=== PATIENT | female | born 1980 | race Caucasian/White ===

== ENCOUNTER 2017-12-25 16:19 | Emergency (ER) | payer OTHER, MEDICAID, SELFPAY ==
--- NOTE | 2017-12-25 | DI.US.S_ITS ---
PROCEDURE: US OB <= 14 WEEKS FETUS INDICATIONS: BLEEDING OUTSIDE/PRIOR DATING DATA: Last menstrual period (LMP): 10/23/17. LMP-based estimated date of delivery ([place]): 07/30/18. First dating scan (date and location): 12/25/17. Estimated date of delivery ([place]) from first dating scan: 08/03/18. TECHNIQUE: Real-time scanning was performed of the fetus and maternal pelvic organs, with image documentation. Endovaginal scanning was also performed to better visualize the fetus and maternal ovaries. COMPARISON: None. FINDINGS: Embryo: Twin intrauterine gestation is present however heart rate detected for only one fetus (180 beats per minute). Hart-rump length measures 1.1 cm. This corresponds to 8 weeks 3 days. Measurement variability in dating: +/- 4 weeks by LMP, +/- 7 days by mean sac diameter (use before 6 weeks gestation if crown-rump length not able to be measured), +/- 5 days by crown-rump length (up to 8 weeks 6 days gestation), +/- 7 days by crown-rump length (up to 13 weeks 6 days gestation). Maternal organs: Ovaries unremarkable except for left-sided presumed corpus luteum.. Limited images through the kidneys demonstrate no hydronephrosis. IMPRESSION: Twin intrauterine gestation, one of which demonstrates demise. The viable fetus demonstrates gestational age of 8 weeks and 3 days by today's ultrasound measurements, concordant with LMP. Dictated by: Gonsalo Ordoñez M.D. on 12/25/2017 at 18:27 Approved by: Gonsalo Ordoñez M.D. on 12/25/2017 at 18:31
[2017-12-25 16:30] VITALS: BP 110/74; PULSE 78; RESP 12; TEMP 36.9; O2SAT 99
--- NOTE | 2017-12-25 16:42 | ED_ITS ---
HPI - <Carmenza George PA-C - Last Filed: 12/25/17 21:57> General Chief complaint: OB/Uterine Contractions Stated complaint: 9WKS AND EXPERIENCING BLEEDING Time Seen by Provider: 12/25/17 16:22 Source: patient and old records reviewed Mode of arrival: ambulatory Limitations: no limitations History of Present Illness HPI Narrative: This 37-year-old female is 9 weeks , was sent from [facility] due to possible miscarriage. Ultrasound was not available there today nor was lab available, so she came here. She states that yesterday, she felt somewhat weak, tired and a bit lightheaded all day. She vomited 4 times during the day (typically she has had 1 episode of vomiting daily). She states that she went to bed and slept most of the day and felt better this morning however she woke up and noted vaginal bleeding which appeared heavy, with clotting. She states the bleeding stopped about the time she got up. She has not bled through a panty liner. She states she might notice a little spotting when she urinates but denies any hematuria. She denies any frequency, urgency or other new urinary symptoms. She denies any vaginal discharge. She has not had fever, chills, sweats. She had crampy abdominal pain yesterday but denies any pain at all now has actually feeling substantially improved. She is generally healthy. This is her 1st Hx Last Menstrual Period: Nine weeks Patient : Yes Related Data Home Medications Medication Instructions Recorded Confirmed ACETAMINOPHEN 0 mg PO PRN #0 02/03/12 Previous Rx's Medication Instructions Recorded Oxycodone (OXYCODONE IR) 5 mg PO Q4HP #30 02/03/12 Allergies Allergy/AdvReac Type Severity Reaction Status Date / Time CODEINE Allergy Mild NAUSEA AND Uncoded 09/22/17 12:22 VOMITING Review of Systems <Carmenza George PA-C - Last Filed: 12/25/17 21:57> Review of Systems All systems reviewed & are unremarkable except as noted in HPI and below PMFSH - <Carmenza George PA-C - Last Filed: 12/25/17 21:57> Past Medical History Medical history: Reports no medical history Surgical history: Reports other (Right upper extremity fracture fixation) Hx Last Menstrual Period: Nine weeks Patient : Yes Psychiatric history: Reports no psych history Exam <Carmenza George PA-C - Last Filed: 12/25/17 21:57> Narrative Exam Narrative: GENERAL APPEARANCE: Patient sitting comfortably, in no distress. HEENT: PERRL, EOMI, conjunctiva pink NECK: Supple LUNGS: Clear to auscultation bilaterally. HEART: Rate and rhythm regular, normal S1 and S2, no S3 or S4. ABDOMEN: Soft, nontender, nondistended, bowel sounds present x 4 quadrants, no masses palpable, no hepatosplenomegaly. No CVAT EXTREMITIES: No edema, no cyanosis DERMATOLOGIC: No jaundice or exanthem NEUROLOGIC: Alert and oriented with normal speech and coordination : Normal external genitalia. There is some clotted, brown blood in the vaginal vault. There is no active bleeding from the cervix. Os is closed. No cervical lesions or discharge. No uterine or adnexal tenderness. No CMT Initial Vital Signs Initial Vital Signs: Vital Signs Temperature 98.4 F 12/25/17 16:30 Pulse Rate 78 12/25/17 16:30 Respiratory Rate 12 12/25/17 16:30 Blood Pressure 110/74 12/25/17 16:30 Pulse Oximetry 99 12/25/17 16:30 <Everardo Philippe DO - Last Filed: 12/26/17 07:26> Initial Vital Signs Initial Vital Signs: Vital Signs Temperature 98.4 F 12/25/17 16:30 Pulse Rate 78 12/25/17 16:30 Respiratory Rate 12 12/25/17 16:30 Blood Pressure 110/74 12/25/17 16:30 Pulse Oximetry 99 12/25/17 16:30 Course <TRANG Singletary Last Filed: 12/25/17 21:57> Additional Information: I spoke with Dr. Cotto, litigation examiner for [employer] and reviewed ultrasound and lab findings. 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 Patient is feeling well now, hungry, tolerating fluids, has had no recurrent bleeding. He advised that patient can return home on bedrest. She is not established with OB yet. He advised to have her call the office on Wednesday morning so that she can be seen for follow-up. She is agreeable with this plan and discussed return if any acutely worsening symptoms again. She is agreeable Orders Ordered: ED Orders 12/25/17 16:45 ABO RH Type Stat HCG Quantitative Stat Hemoglobin and Hematocrit Stat Vital Signs - 8 hr 12/25/17 16:30 12/25/17 18:19 Temperature 98.4 F 98.0 F Pulse Rate 78 60 Respiratory Rate 12 16 Blood Pressure 110/74 Blood Pressure [Right Arm] 100/54 L Pulse Oximetry 99 100 <Everardo Philippe DO - Last Filed: 12/26/17 07:26> Orders Ordered: ED Orders 12/25/17 16:45 ABO RH Type Stat HCG Quantitative Stat Hemoglobin and Hematocrit Stat Vital Signs - 8 hr 12/25/17 16:30 12/25/17 18:19 Temperature 98.4 F 98.0 F Pulse Rate 78 60 Respiratory Rate 12 16 Blood Pressure 110/74 Blood Pressure [Right Arm] 100/54 L Pulse Oximetry 99 100 MDM - OB/Uterine Contractions <Carmenza George PA-C - Last Filed: 12/25/17 21:57> Lab Data Attestation: I reviewed the patient's lab results. 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 Cotto, from [facility] [employer]. He wants you to be on complete bed rest this weekend. You can be up to the restroom. Please call his office 1st thing Wednesday morning and let the switchboard operator receptionist no that we talked with him from the emergency department today and he wants you to be seen there. It is possible that you may have some additional bleeding, but you should return if you are feeling acutely worse again as we discussed. 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 Prescriptions: No Action ACETAMINOPHEN PO PRN Qty: 0 RF: 0 Oxycodone (OXYCODONE IR) 5 mg PO Q4HP Qty: 30 RF: 0 Referrals: Raji Cotto MD [Physician] - Terrance Calixto MD [Non-Staff] - <Everardo Philippe DO - Last Filed: 12/26/17 07:26> [facility] Attending Angelo Attestation: I was available for consultation during this patient's emergency department encounter
[2017-12-25 17:06] LABS: Hematocrit 42.9 % (36-46); Hemoglobin 14.6 g/dL (12.0-16.0)
[2017-12-25 18:06] LABS: HCG Quantitative /Beta subunit 113230 mIU/mL
[2017-12-25 18:19] VITALS: BP 100/54; PULSE 60; RESP 16; TEMP 36.7; O2SAT 100
== END 2017-12-25 19:38 | disposition home or self-care (01) ==
PROVIDERS: Emergency Provider Internal Medicine
DX: O20.9 Hemorrhage in early pregnancy, unspecified (principal); O31.21X0 Continuing pregnancy after intrauterine death of one fetus or more, first trimester, not applicable or unspecified; Z3A.09 9 weeks gestation of pregnancy
CPT/HCPCS: 36591; 76801; 76817; 81003; 81025; 84702; 85014; 85018; 86900; 86901; 99282; 99284

== ENCOUNTER → 2017-12-27 13:50 | Outpatient (CLI) | payer OTHER, MEDICAID, SELFPAY ==
[2017-12-27 15:04] LABS: Add Manual Diff / Slide Review NO; Basophils Percent Auto 0.7 % (0-2); Eosinophils Percent Auto 0.3 % (2-4); Hematocrit 41.4 % (36-46); Mean Corpuscular HGB Conc 33.9 % (30-36); Mean Corpuscular Hemoglobin 32.1 PG (26-34); Mean Corpuscular Volume 94.8 fL (80-100); Monocytes Percent Auto 4.4 % (3-14); Neutrophils Absolute Auto 11200 /uL (3000-5900); Neutrophils Percent Auto 82.6 % (50-75); Platelet Count 292 X10^3/uL (150-400); Red Blood Cell Count 4.37 X10^6/uL (4.0-5.2); Red Cell Distribution Width 13.6 % (11.6-14.8); White Blood Cell Count 13.6 X10^3/uL (4.5-11.0)
[2017-12-27 16:09] LABS: Hepatitis B Surface Antigen NEGATIVE s/c (NEGATIVE)
[2017-12-27 16:24] LABS: HIV 1 and 2 Antibody NEGATIVE (NEGATIVE); Hep C Virus Ab w/Reflex Quant NEGATIVE s/c (NEGATIVE)
[2017-12-29 14:04] LABS: HSV 2 IGG AB < 0.90 index (< 0.90); HSV1IGG < 0.90 index (< 0.90)
[2017-12-29 14:29] LABS: Varicella IgG Antibody > 4000.00 Index (< 135.00)
[2018-01-01 18:20] LABS: Rapid Plasma Reagin NON-REACTIVE
--- NOTE | 2018-01-24 15:49 | PM.GYNHP.1 ---
History of Present Illness Reason for admission: vaginal bleeding and early complication Narrative: Verna Hernandez is a 37 year old female initially seen for bleeding in . Patient had a my 2nd twin and the 1st twin appeared to be viable. Patient was seen in follow-up and both twins this juncture were nonviable. Patient elected to have a D&C to prevent heavy bleeding and retained products of conception. PFSH Social History Smoking Status: Never smoker Meds Allergies Allergy/AdvReac Type Severity Reaction Status Date / Time No Known Allergies Allergy Verified 01/24/18 15:51 codeine AdvReac Mild Vomiting Verified 01/24/18 15:50 Exam Vital Signs (past 8 hours): HEENT within normal limits Chest clear percussion auscultation Cardiovascular system normal sinus rhythm Objective Labs Result Diagrams: 12/27/17 13:54 Assessment & Plan (1) Missed : Problem details: Missed twin Plan is for dilatation and curettage Current visit: No Status: Acute Plan: Assessment/Plan Narrative: Missed twin Plan is for D&C
== END ==
DX: Z34.91 Encounter for supervision of normal pregnancy, unspecified, first trimester (principal)
CPT/HCPCS: 36415; 80055; 86695; 86696; 86703; 86787; 86803; 86850; 86900; 86901; 87077; 87086

== ENCOUNTER 2018-01-26 12:04 | Day surgery (SDC) | payer OTHER, MEDICAID, SELFPAY ==
[2018-01-26] VITALS (15 sets, daily range): BP systolic 91–115; BP diastolic 56–72; PULSE 46–73; RESP 10–25; TEMP 35.9–37.3; O2SAT 95–100; BMI 22.1
--- NOTE | 2018-01-26 | PATH_ITS ---
[facility] Accession Number: [id number] . 01 Material submitted: . POC . 02 Diagnosis: Products of Conception: Chorionic villi, consistent with products of conception. MRV/01/28/2018 . 02 Electronically signed: . Natalie Rogers MD, Pathologist NPI- [id number] . 01 Gross description: . Received in formalin, labeled products of conception, are multiple fragments of red-brown spongy and pink membranous tissue (13.3 x 8.5 x 3.5 cm in aggregate). No tissue is identified. [employer] tissue is submitted in cassettes A1-A4. ([id number]) /MRV . 02 Pathologist provided ICD-10: O02.1 . 02 CPT . 617195 Performed at: 01 [facility] [address] [id number] MD Davion Sadler MD Phone: [phone] Performed at: 02 [facility] [id number] [place] [id number] MD Troy Stuart MD Phone: [phone]
[2018-01-26] MEDS: LACTATED RINGERS 1,000 ML 42 ML IV (12:20)
[2018-01-26] MEDS: CEFOTETAN 2 GM/50 ML PIGGYBACK IV (12:37)
--- NOTE | 2018-01-26 12:54 | SUR.OPER ---
Lithotomy on padded OR bed, head on pillow, arms secured on padded arm boards at <90 degrees abduction. Legs secured in padded yellow fins stirrups.
--- NOTE | 2018-01-26 13:11 | PM.GYNOP.1 ---
Procedure: Procedures Operation Date: 01/26/18 12:30 Actual Procedures Side Surgeon p Dilation and Curettage-Suction Raji Cotto MD Indications: Missed AB Surgeon: Raji Cotto Anesthesia Type: General Operative Notes Closure Type: not applicable Specimen(s): endometrial curettings Estimated blood loss (mL): 400 Blood products transfused: none Procedure in detail: The patient was placed supine upon the operating table and anesthetized area she was then placed in the dorsal lithotomy position and examined under anesthesia. The patient had a uterus approximately 10 week size. Patient was then draped and prepared in the usual fashion. A posterior retractor was set in place and the anterior lip of the cervix grasped with a toothed tenaculum. The uterine cavity was sounded to 11 cm. The uterine cervix was dilated to a Hegar 12. The cervix calibrated to a Hegar 11. A 12. Suction curette was used and large amounts of products of conception were obtained without difficulty. Ring forcep showed no remaining tissue. Gentle curettage revealed no remaining tissue. At the end of procedure there was no bleeding and the uterus had involuted nicely to approximately eight weeks size. The patient was taken to the recovery room in satisfactory condition. Post-operative Condition: stable Disposition: PACU Plan for aftercare: Home Dr. Pearson two weeks
[2018-01-26] MEDS: OXYCODONE/ACETAMINOPHEN 5/325 TABLET 1 TAB PO (13:20)
[2018-01-26] MEDS: HYDROMORPHONE 2 MG INJ 0.5 MG IV ×4 (13:40→13:55)
[2018-01-26] MEDS: ONDANSETRON 4 MG/2 ML INJ IV ×2 (14:33→15:33)
[2018-01-26] MEDS: LACTATED RINGERS 1,000 ML 100 ML IV (15:00)
[2018-01-26] MEDS: METOCLOPRAMIDE 10 MG/2 ML INJ 5 MG IV (15:00)
--- NOTE | 2018-01-26 15:36 | SUR.PHASEII ---
pt has had ongoing nausea nd vomitting verbal orders recieved from dr arauz due to orders in [facility] showing as discontinued. pt is much better at this point but continues to have BP on low end of normal
--- NOTE | 2018-01-26 16:44 | SUR.PHASEII ---
pt done with phase 2 but waited 30 minutes for significant other to arrive
== END 2018-01-26 16:30 | disposition home or self-care (01) ==
PROC: (CPT 58120; principal; 2018-01-26 12:30)
DX: O02.1 Missed abortion (principal); Z3A.00 Weeks of gestation of pregnancy not specified
CPT/HCPCS: 59820; 88305; J1170; J1200; J2210; J2405; J2590; J2704; J2765; J3010

== ENCOUNTER → 2018-02-21 13:23 | Outpatient (CLI) | payer OTHER, MEDICAID, SELFPAY | DX: T81.9XXA Unspecified complication of procedure, initial encounter (principal) | CPT/HCPCS: 87070; 87077; 87147; 87205 ==

== ENCOUNTER → 2018-03-01 12:24 | Outpatient (CLI) | payer OTHER, MEDICAID, SELFPAY | DX: N90.89 Other specified noninflammatory disorders of vulva and perineum (principal) | CPT/HCPCS: 87255 ==

== ENCOUNTER → 2018-04-22 14:19 | Outpatient (CLI) | payer OTHER, MEDICAID, SELFPAY ==
[2018-04-22 15:28] LABS: Prolactin 7.1 ng/mL (3.0-18.6)
[2018-04-22 16:03] LABS: Free T4, Direct Thyroxine 1.19 ng/dL (0.78-2.19)
[2018-04-22 16:16] LABS: Thyroid Stimulating Hormone 1.51 uIU/mL (0.47-4.68)
[2018-04-27 21:42] LABS: Testosterone Free 3.2 pg/mL (0.1-6.4); Testosterone Total 36 ng/dL (2-45)
== END ==
DX: E28.2 Polycystic ovarian syndrome (principal)
CPT/HCPCS: 36415; 82397; 83001; 83002; 84146; 84402; 84403; 84439; 84443

== ENCOUNTER 2018-09-15 14:34 | Emergency (ER) | payer OTHER, MEDICAID, SELFPAY ==
[2018-09-15 14:53] VITALS: BP 109/60; PULSE 70; RESP 15; TEMP 36.6; O2SAT 95; BMI 22.8
[2018-09-15 16:00] LABS: Add Manual Diff / Slide Review NO; Basophils Absolute Auto 100 /uL (0-100); Basophils Percent Auto 0.9 % (0-2); Eosinophils Absolute Auto 300 /uL (0-450); Eosinophils Percent Auto 4.6 % (2-4); Hemoglobin 14.2 g/dL (12.0-16.0); Lymphocytes Absolute Auto 2400 /uL (1100-4500); Lymphocytes Percent Auto 32.2 % (25-40); Mean Corpuscular Hemoglobin 32.1 PG (26-34); Mean Corpuscular Volume 97.3 fL (80-100); Monocytes Absolute Auto 500 /uL (0-900); Monocytes Percent Auto 6.8 % (3-14); Neutrophils Absolute Auto 4100 /uL (1500-7000); Neutrophils Percent Auto 55.5 % (50-75); Platelet Count 280 X10^3/uL (150-400); Red Blood Cell Count 4.42 X10^6/uL (4.0-5.2); Red Cell Distribution Width 13.1 % (11.6-14.8); White Blood Cell Count 7.3 X10^3/uL (4.5-11.0)
--- NOTE | 2018-09-15 16:02 | ED.ABDPAIN ---
HPI - Abdominal Pain <Carmenza George PA-C - Last Filed: 09/15/18 22:01> General Chief Complaint: Abdominal Pain Stated Complaint: right side abominal pain x4-5 days Time Seen by Provider: 09/15/18 15:49 Source: patient Mode of arrival: ambulatory Limitations: no limitations History of Present Illness HPI narrative: This 37-year-old female complains of 4-5 day history of constant right upper quadrant pain just under the ribs. She states that this is an achy, constant pain, worse 1st thing in the morning and with standing. Somewhat better with sitting. She states that there is no relation to food. She generally has not had any nausea or vomiting but did have some nausea today and feels like the pain has gradually gotten a little bit worse, now radiating around to her back slightly. She states that she did have some chips and a little juice right before she got here, otherwise has not eaten today otherwise had been eating normally all along. She states that she had some calf cramps earlier today but not achy all over. She feels a little bit foggy. She denies any fever. She denies any chest pain or dyspnea. She denies any urinary symptoms or hematuria. She denies any bowel habit changes or blood in the stools. She has not had any rash, upper respiratory symptoms or cough recently. She denies possibility of . Related Data Previous Rx's Medication Instructions Recorded valacyclovir 500 mg tablet 500 mg PO .bid #10 tab 03/16/18 letrozole 2.5 mg tablet 2.5 mg PO DAILY #5 tab 05/10/18 medroxyprogesterone 10 mg tablet 10 mg PO DAILY #7 tab 05/10/18 Allergies Allergy/AdvReac Type Severity Reaction Status Date / Time codeine AdvReac Mild Vomiting Verified 09/15/18 14:47 Review of Systems <Carmenza George PA-C - Last Filed: 09/15/18 22:01> Review of Systems ROS Unobtainable: All systems reviewed & are unremarkable except as noted in HPI and below PFSH <Carmenza George PA-C - Last Filed: 09/15/18 22:01> Medical History (Updated 09/15/18 @ 17:58 by Carmenza George PA-C) Healthy female adult (Chronic) Surgical History (Updated 09/15/18 @ 16:32 by Carmenza George PA-C) Right arm fracture (Resolved) S/P D&C (status post dilation and curettage) (Resolved ~01/26/18) Social History household members: none Smoking Status: Never smoker Social History household members: none Smoking Status: Never smoker Exam <Carmenza George PA-C - Last Filed: 09/15/18 22:01> Narrative Exam Narrative: GENERAL APPEARANCE: Patient sitting comfortably, in no distress. HEENT: PERRL, EOMI, no scleral icterus, normal oropharynx NECK: Supple LUNGS: Clear to auscultation bilaterally. HEART: Rate and rhythm regular, normal S1 and S2, no S3 or S4. CHEST: No tenderness along the right inferior ribs ABDOMEN: Soft, nondistended, bowel sounds present x 4 quadrants, no masses palpable, no hepatosplenomegaly. moderate right upper quadrant tenderness to palpation and milder generalized mid to lower quadrant tenderness. no CVAT. No guarding or rebound. Negative Castillo's sign EXTREMITIES: No edema, no calf tenderness DERMATOLOGIC: No jaundice or exanthem NEUROLOGIC: Alert and oriented with normal speech and coordination Initial Vital Signs Initial Vital Signs: Vital Signs Temperature 97.8 F 09/15/18 14:53 Pulse Rate 70 09/15/18 14:53 Respiratory Rate 15 09/15/18 14:53 Blood Pressure 109/60 09/15/18 14:53 Pulse Oximetry 95 09/15/18 14:53 <Radha Streeter MD - Last Filed: 09/25/18 07:40> Initial Vital Signs Initial Vital Signs: Vital Signs Temperature 97.8 F 09/15/18 14:53 Pulse Rate 70 09/15/18 14:53 Respiratory Rate 15 09/15/18 14:53 Blood Pressure 109/60 09/15/18 14:53 Pulse Oximetry 95 09/15/18 14:53 Course <Carmenza George PA-C - Last Filed: 09/15/18 22:01> Additional Information: Patient has appeared comfortable during her stay. She has been drinking juice and states that she is hungry. She has been on her cell phone when I come back into the room each time to talk with her, noted to be quite close to her boyfriend in the lobby (asked by nurses to discontinue behavior). She does not appear to need hospitalization, however did advise at the importance of close follow-up for abdominal pain and need for further testing if this persists. She is agreeable. Discussed her finding of low blood sugar. She had not had any food today until just prior to arrival so may have been related to this but advised her to eat regularly and this may need to be rechecked as well. Orders Ordered: Discontinued Medications Ketorolac Tromethamine (Toradol) 30 mg IV NOW ONE Stop: 09/15/18 16:13 Last Admin: 09/15/18 16:21 Dose: 30 mg Ondansetron HCl (Zofran) 4 mg IV NOW ONE Stop: 09/15/18 16:19 Last Admin: 09/15/18 16:21 Dose: 4 mg Vital Signs - 8 hr 09/15/18 14:53 09/15/18 16:46 09/15/18 17:52 Temperature 97.8 F Pulse Rate 70 69 66 Respiratory Rate 15 17 18 Blood Pressure 109/60 Blood Pressure [Left Arm] 110/67 108/69 Pulse Oximetry 95 100 100 09/15/18 18:09 Temperature 98.2 F Pulse Rate 63 Respiratory Rate 16 Blood Pressure 95/66 Blood Pressure [Left Arm] Pulse Oximetry 100 <Radha Streeter MD - Last Filed: 09/25/18 07:40> Orders Ordered: Discontinued Medications Ketorolac Tromethamine (Toradol) 30 mg IV NOW ONE Stop: 09/15/18 16:13 Last Admin: 09/15/18 16:21 Dose: 30 mg Ondansetron HCl (Zofran) 4 mg IV NOW ONE Stop: 09/15/18 16:19 Last Admin: 09/15/18 16:21 Dose: 4 mg Vital Signs - 8 hr 09/15/18 14:53 09/15/18 16:46 09/15/18 17:52 Temperature 97.8 F Pulse Rate 70 69 66 Respiratory Rate 15 17 18 Blood Pressure 109/60 Blood Pressure [Left Arm] 110/67 108/69 Pulse Oximetry 95 100 100 09/15/18 18:09 Temperature 98.2 F Pulse Rate 63 Respiratory Rate 16 Blood Pressure 95/66 Blood Pressure [Left Arm] Pulse Oximetry 100 MDM - Abdominal Pain <Carmenza George PA-C - Last Filed: 09/15/18 22:01> Lab Data Attestation: I reviewed the patient's lab results. Result diagrams: 09/15/18 15:00 09/15/18 15:00 Lab Results 09/15/18 09/15/18 Range/Units 15:00 15:00 WBC 7.3 (4.5-11.0) X10^3/uL RBC 4.42 (4.0-5.2) X10^6/uL Hgb 14.2 (12.0-16.0) g/dL Hct 43.0 (36-46) % MCV 97.3 (80-100) fL MCH 32.1 (26-34) PG MCHC 33.0 (30-36) % RDW 13.1 (11.6-14.8) % Plt Count 280 (150-400) X10^3/uL Neut % (Auto) 55.5 (50-75) % Lymph % (Auto) 32.2 (25-40) % [place] % (Auto) 6.8 (3-14) % Eos % (Auto) 4.6 H (2-4) % Baso % (Auto) 0.9 (0-2) % Neut # (Auto) 4100 (8220-9391) /uL Lymph # (Auto) 2400 (2725-6157) /uL [place] # (Auto) 500 (0-900) /uL Eos # (Auto) 300 (0-450) /uL Baso # (Auto) 100 (0-100) /uL Sodium 139 (137-145) mmol/L Potassium 4.0 (3.4-5.1) mmol/L Chloride 100 (98-107) mmol/L Carbon Dioxide 31 (22-32) mmol/L BUN 10 (7-17) mg/dL Creatinine 0.60 (0.52-1.04) mg/dL Estimated GFR > 60.0 (>60) mL/min BUN/Creatinine Ratio 16.7 (6-22) Glucose 44 L* (70-100) mg/dL Calcium 9.3 (8.4-10.2) mg/dL Total Bilirubin 0.3 (0.2-1.3) mg/dL AST 30 (14-36) IU/L ALT 27 (9-52) IU/L Alkaline Phosphatase 47 (38-126) U/L Total Protein 7.8 (6.3-8.2) g/dL Albumin 4.7 (3.5-5.0) g/dL Globulin 3.1 (1.7-4.1) g/dL Albumin/Globulin Ratio 1.5 (1.0-2.8) Lipase 166 (23-300) U/L Point of care testing: Point of Care Testing Test Results Negative Glucose POC 106 Urine Dip Bedside Urine Glucose Negative Bedside Urine Bilirubin - Negative Bedside Urine Ketone - Negative Urine Specific [place] 1.025 Bedside Urine Occult Blood - Negative Bedside Urine pH 6.5 Bedside Urine Protein - Negative Bedside Urine Urobilinogen - Negative Bedside Urine Nitrite - Negative Bedside Urine Leukocytes - Negative Esterase Imaging Data US - abdomen: Radiologist's impression: [address] [address] Ultrasound Report Signed Patient: Verna Hernandez#: [id number] : 1980Acct:[id number] Age/Sex: 37 / FDate of Service: 09/15/18 Loc: ED Accession Number: [id number] Procedure: US abdomen complete Ordering Provider: Carmenza George P.A-C PROCEDURE: US ABDOMEN COMPLETE INDICATIONS: RIGHT UPPER QUADRANT AND RIGHT FLANK PAIN TECHNIQUE: Real-time scanning was performed of the abdominal and retroperitoneal organs, with image documentation. COMPARISON: None. FINDINGS: Liver: The liver is normal in size and demonstrates mildly increased echogenicity when compared to the right renal cortex. However, there is a focal area of increased echogenicity identified near the main portal vein within the left hepatic lobe, measuring up to 1.6 cm, which is not well characterized. No additional lesions are evident. Gallbladder: The gallbladder is normal in size without cholelithiasis or gall bladder wall inflammation. Biliary ducts: Intrahepatic bile ducts are non-dilated. Extrahepatic bile duct caliber measures 9 mm. Normal is 6-7 mm or less in diameter, or 10 mm or less post-cholecystectomy. Pancreas: Visualized portions of the pancreas are sonographically normal. Spleen: Spleen is normal in size and homogeneous in echotexture. Kidneys: Kidneys are normal in size and echotexture. However, large portion of the inferior aspect of the right kidney is obscured by bowel gas. Right kidney measures 10.0 cm long; left kidney measures 10.3 cm long. No hydronephrosis or shadowing nephrolithiasis. No solid masses. Aorta: Visualized aorta is normal in caliber at less than 3 cm. Iliacs: Proximal common iliac arteries are normal in caliber at less than 2.5 cm. IVC: Intrahepatic inferior vena cava is patent. Miscellaneous: No free abdominal fluid. IMPRESSION: 1. No cholelithiasis or evidence of acute cholecystitis. 2. Enlarged common bile duct is unusual for the patient's age. Please consider MRCP to exclude the possibility of choledocholithiasis. 3. Possible mild hepatic steatosis. 4. Small echogenic focus within the liver near the main portal vein probably represents a focal area of fatty infiltration. A hemangioma or other etiologies may also have this appearance. 5. No hydronephrosis. Dictated by: Felipe Jerez M.D. on 09/15/2018 at 16:28 Approved by: Felipe Jerez M.D. on 09/15/2018 at 16:32 <Radha Streeter MD - Last Filed: 09/25/18 07:40> Lab Data Lab Results 09/15/18 09/15/18 Range/Units 15:00 15:00 WBC 7.3 (4.5-11.0) X10^3/uL RBC 4.42 (4.0-5.2) X10^6/uL Hgb 14.2 (12.0-16.0) g/dL Hct 43.0 (36-46) % MCV 97.3 (80-100) fL MCH 32.1 (26-34) PG MCHC 33.0 (30-36) % RDW 13.1 (11.6-14.8) % Plt Count 280 (150-400) X10^3/uL Neut % (Auto) 55.5 (50-75) % Lymph % (Auto) 32.2 (25-40) % [place] % (Auto) 6.8 (3-14) % Eos % (Auto) 4.6 H (2-4) % Baso % (Auto) 0.9 (0-2) % Neut # (Auto) 4100 (4490-4652) /uL Lymph # (Auto) 2400 (5246-1342) /uL [place] # (Auto) 500 (0-900) /uL Eos # (Auto) 300 (0-450) /uL Baso # (Auto) 100 (0-100) /uL Sodium 139 (137-145) mmol/L Potassium 4.0 (3.4-5.1) mmol/L Chloride 100 (98-107) mmol/L Carbon Dioxide 31 (22-32) mmol/L BUN 10 (7-17) mg/dL Creatinine 0.60 (0.52-1.04) mg/dL Estimated GFR > 60.0 (>60) mL/min BUN/Creatinine Ratio 16.7 (6-22) Glucose 44 L* (70-100) mg/dL Calcium 9.3 (8.4-10.2) mg/dL Total Bilirubin 0.3 (0.2-1.3) mg/dL AST 30 (14-36) IU/L ALT 27 (9-52) IU/L Alkaline Phosphatase 47 (38-126) U/L Total Protein 7.8 (6.3-8.2) g/dL Albumin 4.7 (3.5-5.0) g/dL Globulin 3.1 (1.7-4.1) g/dL Albumin/Globulin Ratio 1.5 (1.0-2.8) Lipase 166 (23-300) U/L Point of care testing: Point of Care Testing Test Results Negative Glucose POC 106 Urine Dip Bedside Urine Glucose Negative Bedside Urine Bilirubin - Negative Bedside Urine Ketone - Negative Urine Specific [place] 1.025 Bedside Urine Occult Blood - Negative Bedside Urine pH 6.5 Bedside Urine Protein - Negative Bedside Urine Urobilinogen - Negative Bedside Urine Nitrite - Negative Bedside Urine Leukocytes - Negative Esterase Discharge Plan Departure Patient Disposition: Home Clinical Impression: Nausea Abdominal pain Qualifiers: Abdominal location: right upper quadrant Qualified Code(s): R10.11 - Right upper quadrant pain Discharge Date/Time: 09/15/18 18:11 Interventions: ED Discharge Assessment Last Done: 09/15/18 18:09 Instructions: DI for Abdominal Pain-Adult Activity Restrictions/Additional Instructions: Since you are feeling better, it is okay to return home for now. Since you are hungry, you can eat but please stick with more bland foods, and eat something every couple of hours as this tends to help more with nausea. Your blood sugar was low today but this may simply have been related to not having eaten anything today until right before you arrived. It is normal now. There was no acute problem other than that found on your lab testing. You did not have an inflamed appearing gallbladder on your ultrasound, however as we talked about the bile duct in the gallbladder was a little bit enlarged for your age. if you continue to have pain, you may need a more specialized test, called an MRCP, that can be done here on an outpatient basis (your PCP may need to put in a referral and schedule that for you). You also may need to see a specialist if you have persistent symptoms. please call your clinic tomorrow and let them know that you were seen here today for abdominal pain and we wanted to have you follow up tomorrow for recheck. As we discussed, you should return here if you have any acutely worsening symptoms, i.e. severe pain, new vomiting that the nausea medicine is not helping, new fever, etc. For pain, please try taking Aleve (naproxen) 2 tablets every 12 hours in addition to the nausea medicine as needed Prescriptions: No Action valacyclovir [Valtrex] 500 mg tablet 500 mg PO .bid Qty: 10 RF: 2 medroxyprogesterone [Provera] 10 mg tablet 10 mg PO DAILY Qty: 7 RF: 3 letrozole 2.5 mg tablet 2.5 mg PO DAILY Qty: 5 RF: 3 Referrals: [facility] [Provider Group] Raji Cotto MD [Physician] -
[2018-09-15 16:08] LABS: Alanine Aminotransferase 27 IU/L (9-52); Albumin 4.7 g/dL (3.5-5.0); Albumin Globulin Ratio 1.5 (1.0-2.8); Alkaline Phosphatase 47 U/L (38-126); Aspartate Aminotransferase 30 IU/L (14-36); BUN Creatinine Ratio 16.7 (6-22); Bilirubin Total 0.3 mg/dL (0.2-1.3); Blood Urea Nitrogen 10 mg/dL (7-17); Calcium 9.3 mg/dL (8.4-10.2); Carbon Dioxide 31 mmol/L (22-32); Chloride 100 mmol/L (98-107); Estimated Glomerular Filt Rate > 60.0 mL/min (>60); Globulin 3.1 g/dL (1.7-4.1); HEMOLYSIS 38 (0-50); Lipase 166 U/L (23-300); Sodium 139 mmol/L (137-145); Total Protein 7.8 g/dL (6.3-8.2)
[2018-09-15 16:11] LABS: Glucose 44 mg/dL (70-100)
[2018-09-15] MEDS: ONDANSETRON 4 MG/2 ML INJ IV (16:21)
[2018-09-15] MEDS: KETOROLAC 60 MG/2 ML VIAL 30 MG IV (16:21)
--- NOTE | 2018-09-15 16:32 | DI.US.S_ITS ---
PROCEDURE: US ABDOMEN COMPLETE INDICATIONS: RIGHT UPPER QUADRANT AND RIGHT FLANK PAIN TECHNIQUE: Real-time scanning was performed of the abdominal and retroperitoneal organs, with image documentation. COMPARISON: None. FINDINGS: Liver: The liver is normal in size and demonstrates mildly increased echogenicity when compared to the right renal cortex. However, there is a focal area of increased echogenicity identified near the main portal vein within the left hepatic lobe, measuring up to 1.6 cm, which is not well characterized. No additional lesions are evident. Gallbladder: The gallbladder is normal in size without cholelithiasis or gall bladder wall inflammation. Biliary ducts: Intrahepatic bile ducts are non-dilated. Extrahepatic bile duct caliber measures 9 mm. Normal is 6-7 mm or less in diameter, or 10 mm or less post-cholecystectomy. Pancreas: Visualized portions of the pancreas are sonographically normal. Spleen: Spleen is normal in size and homogeneous in echotexture. Kidneys: Kidneys are normal in size and echotexture. However, large portion of the inferior aspect of the right kidney is obscured by bowel gas. Right kidney measures 10.0 cm long; left kidney measures 10.3 cm long. No hydronephrosis or shadowing nephrolithiasis. No solid masses. Aorta: Visualized aorta is normal in caliber at less than 3 cm. Iliacs: Proximal common iliac arteries are normal in caliber at less than 2.5 cm. IVC: Intrahepatic inferior vena cava is patent. Miscellaneous: No free abdominal fluid. IMPRESSION: 1. No cholelithiasis or evidence of acute cholecystitis. 2. Enlarged common bile duct is unusual for the patient's age. Please consider MRCP to exclude the possibility of choledocholithiasis. 3. Possible mild hepatic steatosis. 4. Small echogenic focus within the liver near the main portal vein probably represents a focal area of fatty infiltration. A hemangioma or other etiologies may also have this appearance. 5. No hydronephrosis. Dictated by: Feilpe Jerez M.D. on 09/15/2018 at 16:28 Approved by: Felipe Jerez M.D. on 09/15/2018 at 16:32
[2018-09-15 16:46] VITALS: BP 110/67; PULSE 69; RESP 17; O2SAT 100
[2018-09-15 17:52] VITALS: BP 108/69; PULSE 66; RESP 18; O2SAT 100
[2018-09-15 18:09] VITALS: BP 95/66; PULSE 63; RESP 16; TEMP 36.8; O2SAT 100
== END 2018-09-15 18:11 | disposition home or self-care (01) ==
PROVIDERS: Emergency Provider Internal Medicine
DX: R11.0 Nausea (principal); R10.11 Right upper quadrant pain; M54.9 Dorsalgia, unspecified
CPT/HCPCS: 36591; 76700; 80053; 81003; 81025; 82962; 83690; 85025; 96374; 96375; 99282; 99284; J1885; J2405

== ENCOUNTER → 2018-10-03 15:57 | Outpatient (CLI) | payer OTHER, MEDICAID, SELFPAY ==
--- NOTE | 2018-10-03 15:58 | DI.MRI.S_ITS ---
PROCEDURE: MR ABDOMEN WO CON INDICATIONS: UPPER ABDOMINAL PAIN. TECHNIQUE: Coronal HASTE through the abdomen, axial 2-D FLASH in- and [id number], and breath-hold T2 FSE with fat saturation through the biliary system and pancreas. Oblique coronal and axial thin-slice HASTE, radial thick-slab HASTE centered on the extrahepatic bile ducts. Intravenous secretin: Not requested. COMPARISON: [facility], , US ABDOMEN COMPLETE, 09/15/2018, 16:48. FINDINGS: Image quality: Diagnostic, with note made of motion artifact. Pancreas and biliary system: The intrahepatic biliary ducts do not appear dilated. There is fusiform dilatation of the common bile duct, which measures up to 12 mm. There is also mild prominence seen of the cystic duct itself. No filling defects can be seen to suggest choledocholithiasis. No significant gallbladder abnormality is seen. Pancreas is normal in morphology, without adjacent soft tissue edema. Pancreatic duct is normal in caliber, without developmental anomalies. Other solid organs: Liver is normal in size. Spleen is normal in size. No adrenal nodules. Both kidneys are normal in size, without hydronephrosis. Nodes and vessels: No retroperitoneal or mesenteric adenopathy by size criteria. Aorta and inferior vena cava are normal in size. Bowel and peritoneum: Unenhanced bowel loops are normal in caliber. No free fluid. Lung bases: No basal pleural effusions. Heart size is normal. Bones and soft tissues: No ventral hernias. Bone marrow is of normal overall signal. 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 No filling defects are seen. No findings of choledocholithiasis. Dictated by: Kenneth Marroquin M.D. on 10/04/2018 at 8:10 Approved by: Kenneth Marroquin M.D. on 10/04/2018 at 8:13
== END ==
PROVIDERS: Visit Provider Physician Assistant Medical
DX: R10.10 Upper abdominal pain, unspecified (principal); K83.8 Other specified diseases of biliary tract
CPT/HCPCS: 74181

== ENCOUNTER 2018-12-10 15:48 | Emergency (ER) | payer OTHER, MEDICAID, SELFPAY ==
[2018-12-10 16:00] VITALS: BP 118/74; PULSE 77; RESP 16; TEMP 37.1; O2SAT 99; BMI 24.5
[2018-12-10 16:42] LABS: Bacteria Urine Occasional (0-1); Culture Indicated Urine Cult Not Indicated; RBC Urine 0-1/HPF (0-5/HPF); Squamous Epithelial Cell Urine 5-10 /HPF (0-5/HPF); WBC Urine 0-1/HPF (0-5/HPF)
--- NOTE | 2018-12-10 17:24 | ED.ABDPAIN ---
HPI - Abdominal Pain <AALIYAH Owen - Last Filed: 12/10/18 20:36> General Chief Complaint: Abdominal Pain Stated Complaint: right side abdominal pain Time Seen by Provider: 12/10/18 17:13 Source: patient Mode of arrival: ambulatory Limitations: no limitations History of Present Illness HPI narrative: 38-year-old female with a history of choledochal cyst presents to the emergency department today complaining of right upper abdominal pain that has worsened over the past few days. States that she ran out of pain medicine if few days ago and she was currently taking Percocet. Is waiting for both [facility] or the [facility] to schedule her for a surgical cyst removal. States yesterday the pain has increased significantly, reports that as a pulling 10/10 right upper quadrant pain that radiates to her hips and her back as well as up to both shoulders. States pain is worse with movement and standing and is better with rest, associated nausea. Patient has been taking naproxen but this has not helped. Denies headaches, chest pain, shortness of breath, nausea, or change in her stools. MD complaint: abdominal pain Related Data Previous Rx's Medication Instructions Recorded letrozole 2.5 mg tablet 2.5 mg PO DAILY #5 tab 05/10/18 medroxyprogesterone 10 mg tablet 10 mg PO DAILY #7 tab 05/10/18 valacyclovir 500 mg tablet 500 mg PO .bid #10 tab 10/31/18 oxycodone-acetaminophen [Percocet] 1 tab PO Q4-6H PRN #5 tab 12/10/18 Allergies Allergy/AdvReac Type Severity Reaction Status Date / Time codeine AdvReac Mild Vomiting Verified 12/10/18 16:05 Review of Systems <AALIYAH Owen - Last Filed: 12/10/18 20:36> Review of Systems REVIEW OF SYSTEMS: GENERAL: Denies fever or chills. HENT: No head trauma, hearing loss or sore throat. EYES: No loss of vision, double vision, eye pain, or irritation. CARDIOVASCULAR: No chest pain or syncope. RESPIRATORY: No shortness of breath or cough. GASTROINTESTINAL: Complains of vomiting and abdominal pain, see HPI. GENITOURINARY: No flank pain or dysuria. MUSCULOSKELETAL: No pain, weakness, or deformities. INTEGUMENTARY: No rash, lesions, or pruritus. NEURO: No numbness, tingling, memory loss, or confusion. PSYCH: No behavior or mood changes. PFSH <AALIYAH Owen - Last Filed: 12/10/18 20:36> Medical History Healthy female adult (Chronic) Surgical History Right arm fracture (Resolved) S/P D&C (status post dilation and curettage) (Resolved ~01/26/18) Social History household members: none Smoking Status: Never smoker Social History household members: none Smoking Status: Never smoker Exam <AALIYAH Owen - Last Filed: 12/10/18 20:36> Initial Vital Signs Initial Vital Signs: Vital Signs Temperature 98.7 F 12/10/18 16:00 Pulse Rate 77 12/10/18 16:00 Respiratory Rate 16 12/10/18 16:00 Blood Pressure 118/74 12/10/18 16:00 Pulse Oximetry 99 12/10/18 16:00 PHYSICAL EXAMINATION: GENERAL: Well groomed, alert, and cooperative. Answers questions promptly and appropriately. Vital signs noted. HENT: Normocephalic, atraumatic. Oral mucosa is pink and moist. EYES: EOMIs, conjunctiva pink, sclera white, no periorbital swelling. NECK: Full range of motion. CHEST: Normal to inspection and without deformities. CARDIOVASCULAR: S1 and S2 sounds normal. Regular rate and rhythm, no murmurs, clicks, or bruits. No pedal edema. RESPIRATORY: Normal respiratory rate, trachea midline, airway patent. No stridor, nasal flaring or accessory muscle use. Lungs are clear in all moe without wheeze, rhonchi, or crackles. GASTROINTESTINAL: Bowel sounds normoactive. Slight tenderness to right upper quadrant, no rebound tenderness, no masses palpated. MUSCULOSKELETAL: Normal gait and coordination. Equal tone and mass bilaterally. EXTREMITIES: CMS intact. Moves all extremities. SKIN: Warm, dry, soft, appropriate color for ethnicity. No lesions, rashes, or wounds. NEURO: Alert and Oriented X 3. Good coordination. No ataxia, or sensory deficits, or cognitive issues. PSYCH: Appropriate affect and mood. <Nancy Monk DO - Last Filed: 12/11/18 08:43> Initial Vital Signs Initial Vital Signs: Vital Signs Temperature 98.7 F 12/10/18 16:00 Pulse Rate 77 12/10/18 16:00 Respiratory Rate 16 12/10/18 16:00 Blood Pressure 118/74 12/10/18 16:00 Pulse Oximetry 99 12/10/18 16:00 Course <Collette AALIYAH Bey - Last Filed: 12/10/18 20:36> Orders Ordered: Discontinued Medications Sodium Chloride (Normal Saline 0.9%) 1,000 mls @ 1,000 mls/hr IV BOLUS ONE Stop: 12/10/18 18:29 Last Infusion: 12/10/18 18:39 Dose: 0 mls/hr Admin: 12/10/18 17:41 Dose: 1,000 mls/hr Ondansetron HCl (Zofran) 4 mg IV NOW ONE Stop: 12/10/18 17:31 Last Admin: 12/10/18 17:41 Dose: 4 mg Oxycodone/Acetaminophen (Percocet 5/325) 1 tab PO NOW ONE Stop: 12/10/18 18:07 Last Admin: 12/10/18 18:38 Dose: 1 tab Oxycodone/Acetaminophen (Endocet 5/325 Prepack) 1 bottle MISC SEEINSTR ONE Stop: 12/10/18 20:09 Last Admin: 12/10/18 20:22 Dose: 1 bottle Reevaluation(s) Reevaluation #1: After evaluation patient states she is relieved that her imaging and labs were normal. States she is still having, see orders. Patient able to get dressed and walk around the room. Consultations Consultation #1: Patient staffed with Dr. Monk. Vital Signs - 8 hr 12/10/18 16:00 12/10/18 18:05 12/10/18 19:02 Temperature 98.7 F Pulse Rate 77 60 55 L Respiratory Rate 16 18 Blood Pressure 118/74 Blood Pressure [Left Arm] 101/60 112/66 Pulse Oximetry 99 100 96 <Nancy Monk DO - Last Filed: 12/11/18 08:43> Orders Ordered: Discontinued Medications Sodium Chloride (Normal Saline 0.9%) 1,000 mls @ 1,000 mls/hr IV BOLUS ONE Stop: 12/10/18 18:29 Last Infusion: 12/10/18 18:39 Dose: 0 mls/hr Admin: 12/10/18 17:41 Dose: 1,000 mls/hr Ondansetron HCl (Zofran) 4 mg IV NOW ONE Stop: 12/10/18 17:31 Last Admin: 12/10/18 17:41 Dose: 4 mg Oxycodone/Acetaminophen (Percocet 5/325) 1 tab PO NOW ONE Stop: 12/10/18 18:07 Last Admin: 12/10/18 18:38 Dose: 1 tab Oxycodone/Acetaminophen (Endocet 5/325 Prepack) 1 bottle MISC SEEINSTR ONE Stop: 12/10/18 20:09 Last Admin: 12/10/18 20:22 Dose: 1 bottle Vital Signs - 8 hr 12/10/18 16:00 12/10/18 18:05 12/10/18 19:02 Temperature 98.7 F Pulse Rate 77 60 55 L Respiratory Rate 16 18 Blood Pressure 118/74 Blood Pressure [Left Arm] 101/60 112/66 Pulse Oximetry 99 100 96 MDM - Abdominal Pain <AALIYAH Owen - Last Filed: 12/10/18 20:36> Medical Records Attestation: I reviewed the patient's medical records. Lab Data Attestation: I reviewed the patient's lab results. Result diagrams: 12/10/18 17:25 12/10/18 17:25 Lab Results 12/10/18 12/10/18 12/10/18 Range/Units 16:10 17:25 17:25 WBC 6.9 (4.5-11.0) X10^3/uL RBC 4.42 (4.0-5.2) X10^6/uL Hgb 14.5 (12.0-16.0) g/dL Hct 42.8 (36-46) % MCV 96.7 (80-100) fL MCH 32.7 (26-34) PG MCHC 33.8 (30-36) % RDW 13.1 (11.6-14.8) % Plt Count 322 (150-400) X10^3/uL Neut % (Auto) 63.7 (50-75) % Lymph % (Auto) 28.4 (25-40) % [place] % (Auto) 5.7 (3-14) % Eos % (Auto) 1.2 L (2-4) % Baso % (Auto) 1.0 (0-2) % Neut # (Auto) 4400 (2938-2811) /uL Lymph # (Auto) 2000 (9085-0723) /uL [place] # (Auto) 400 (0-900) /uL Eos # (Auto) 100 (0-450) /uL Baso # (Auto) 100 (0-100) /uL PT 11.2 (10.1-12.7) SECONDS INR 1.0 (0.9-1.3) APTT 31 (26.4-36.2) SECONDS Sodium (137-145) mmol/L Potassium (3.4-5.1) mmol/L Chloride (98-107) mmol/L Carbon Dioxide (22-32) mmol/L BUN (7-17) mg/dL Creatinine (0.52-1.04) mg/dL Estimated GFR (>60) mL/min BUN/Creatinine Ratio (6-22) Glucose (70-100) mg/dL Calcium (8.4-10.2) mg/dL Total Bilirubin (0.2-1.3) mg/dL AST (14-36) IU/L ALT (9-52) IU/L Alkaline Phosphatase (38-126) U/L Total Protein (6.3-8.2) g/dL Albumin (3.5-5.0) g/dL Globulin (1.7-4.1) g/dL Albumin/Globulin Ratio (1.0-2.8) Lipase (23-300) U/L Urine RBC 0-1/hpf (0-5/HPF) Urine WBC 0-1/hpf (0-5/HPF) Ur Squamous Epith Cells 5-10 /hpf H (0-5/HPF) Urine Bacteria Occasional (0-1) (None) Ur Culture Indicated? Cult not indicated 12/10/18 Range/Units 17:25 WBC (4.5-11.0) X10^3/uL RBC (4.0-5.2) X10^6/uL Hgb (12.0-16.0) g/dL Hct (36-46) % MCV (80-100) fL MCH (26-34) PG MCHC (30-36) % RDW (11.6-14.8) % Plt Count (150-400) X10^3/uL Neut % (Auto) (50-75) % Lymph % (Auto) (25-40) % [place] % (Auto) (3-14) % Eos % (Auto) (2-4) % Baso % (Auto) (0-2) % Neut # (Auto) (6571-3833) /uL Lymph # (Auto) (4095-3677) /uL [place] # (Auto) (0-900) /uL Eos # (Auto) (0-450) /uL Baso # (Auto) (0-100) /uL PT (10.1-12.7) SECONDS INR (0.9-1.3) APTT (26.4-36.2) SECONDS Sodium 141 (137-145) mmol/L Potassium 4.2 (3.4-5.1) mmol/L Chloride 104 (98-107) mmol/L Carbon Dioxide 29 (22-32) mmol/L BUN 9 (7-17) mg/dL Creatinine 0.60 (0.52-1.04) mg/dL Estimated GFR > 60.0 (>60) mL/min BUN/Creatinine Ratio 15.0 (6-22) Glucose 78 (70-100) mg/dL Calcium 9.8 (8.4-10.2) mg/dL Total Bilirubin 0.4 (0.2-1.3) mg/dL AST 26 (14-36) IU/L ALT 20 (9-52) IU/L Alkaline Phosphatase 74 (38-126) U/L Total Protein 8.0 (6.3-8.2) g/dL Albumin 4.6 (3.5-5.0) g/dL Globulin 3.4 (1.7-4.1) g/dL Albumin/Globulin Ratio 1.4 (1.0-2.8) Lipase 112 (23-300) U/L Urine RBC (0-5/HPF) Urine WBC (0-5/HPF) Ur Squamous Epith Cells (0-5/HPF) Urine Bacteria (None) Ur Culture Indicated? Point of care testing: Point of Care Testing Test Results Negative Urine Dip Bedside Urine Glucose Negative Bedside Urine Bilirubin - Negative Bedside Urine Ketone - Negative Urine Specific [place] 1.015 Bedside Urine Occult Blood + Bedside Urine pH 6.5 Bedside Urine Protein - Negative Bedside Urine Urobilinogen - Negative Bedside Urine Nitrite - Negative Bedside Urine Leukocytes - Negative Esterase Imaging Data US - abdomen: Radiologist's impression: [address] [address] Ultrasound Report Signed Patient: Verna HernandezMR#: [id number] : 1980Acct:[id number] Age/Sex: 38 / FDate of Service: 12/10/18 Loc: ED Accession Number: [id number] Procedure: US abdomen limited Ordering Provider: Coleltte Bey PROCEDURE: US ABDOMEN LIMITED INDICATIONS: INCREASED RUQ PAIN, HX OF CHOLEDOCHAL CYST TECHNIQUE: Real-time scanning was performed of the abdominal and retroperitoneal organs, with image documentation. COMPARISON: [facility], MR, MR ABDOMEN WO CON, 10/03/2018, 16:32. [facility], US, US ABDOMEN COMPLETE, 09/15/2018, 16:48. FINDINGS: Gallbladder and liver: The gallbladder appears normal, free of calculus or wall thickening. The posterior border of the liver parenchyma near the portal vein and common hepatic duct contains a nonspecific ovoid hyperechoic finding measuring 6 x 10 x 14 mm, likely a small hemangioma by appearance. Biliary ducts: Intrahepatic bile ducts are non-dilated. Extrahepatic bile duct caliber measures 9 mm. This area of mild ectasia of the common duct is consistent with a type I choledochocyst. Normal is 6-7 mm or less in diameter, or 10 mm or less post-cholecystectomy. Pancreas: Visualized portions of the pancreas are sonographically normal. Spleen: Spleen is normal in size and homogeneous in echotexture. Miscellaneous: No free abdominal fluid. IMPRESSION: A mild fusiform ectasia of the mid common bile duct is again seen equivalent to that present considering differences in technique on recent prior MR scanning 10/03/18, consistent with a type I choledochocyst. No source of pain is seen, gallbladder appears normal. Incidental note made of a small ovoid hyperechoic area of the liver parenchyma adjacent to the gallbladder fossa region, consistent with small hemangioma or focal fatty infiltration. Dictated by: Leandro Beltran M.D. on 12/10/2018 at 19:44 Approved by: Leandro Beltran M.D. on 12/10/2018 at 19:50 ECG Data Interpretation: Normal sinus rhythm, rate 61 beats per minute, pr interval 107, QTC 400, no ST elevation or ST depression, no ectopy MDM Narrative Medical decision making narrative: I suspect that patient's pain is caused by her cyst, and is exacerbated by the fact that she ran and pain medication a few days ago. Very little concern for worsening condition due to normal labs and unchanged ultrasound. Little concern for infection, hernia, or other disease process due to normal labs and unchanged imaging. Strict return precautions discussed and follow-up instructions given. <Nancy Monk, - Last Filed: 12/11/18 08:43> Lab Data Lab Results 12/10/18 12/10/18 12/10/18 Range/Units 16:10 17:25 17:25 WBC 6.9 (4.5-11.0) X10^3/uL RBC 4.42 (4.0-5.2) X10^6/uL Hgb 14.5 (12.0-16.0) g/dL Hct 42.8 (36-46) % MCV 96.7 (80-100) fL MCH 32.7 (26-34) PG MCHC 33.8 (30-36) % RDW 13.1 (11.6-14.8) % Plt Count 322 (150-400) X10^3/uL Neut % (Auto) 63.7 (50-75) % Lymph % (Auto) 28.4 (25-40) % [place] % (Auto) 5.7 (3-14) % Eos % (Auto) 1.2 L (2-4) % Baso % (Auto) 1.0 (0-2) % Neut # (Auto) 4400 (3156-4803) /uL Lymph # (Auto) 2000 (2388-0958) /uL [place] # (Auto) 400 (0-900) /uL Eos # (Auto) 100 (0-450) /uL Baso # (Auto) 100 (0-100) /uL PT 11.2 (10.1-12.7) SECONDS INR 1.0 (0.9-1.3) APTT 31 (26.4-36.2) SECONDS Sodium (137-145) mmol/L Potassium (3.4-5.1) mmol/L Chloride (98-107) mmol/L Carbon Dioxide (22-32) mmol/L BUN (7-17) mg/dL Creatinine (0.52-1.04) mg/dL Estimated GFR (>60) mL/min BUN/Creatinine Ratio (6-22) Glucose (70-100) mg/dL Calcium (8.4-10.2) mg/dL Total Bilirubin (0.2-1.3) mg/dL AST (14-36) IU/L ALT (9-52) IU/L Alkaline Phosphatase (38-126) U/L Total Protein (6.3-8.2) g/dL Albumin (3.5-5.0) g/dL Globulin (1.7-4.1) g/dL Albumin/Globulin Ratio (1.0-2.8) Lipase (23-300) U/L Urine RBC 0-1/hpf (0-5/HPF) Urine WBC 0-1/hpf (0-5/HPF) Ur Squamous Epith Cells 5-10 /hpf H (0-5/HPF) Urine Bacteria Occasional (0-1) (None) Ur Culture Indicated? Cult not indicated 12/10/18 Range/Units 17:25 WBC (4.5-11.0) X10^3/uL RBC (4.0-5.2) X10^6/uL Hgb (12.0-16.0) g/dL Hct (36-46) % MCV (80-100) fL MCH (26-34) PG MCHC (30-36) % RDW (11.6-14.8) % Plt Count (150-400) X10^3/uL Neut % (Auto) (50-75) % Lymph % (Auto) (25-40) % [place] % (Auto) (3-14) % Eos % (Auto) (2-4) % Baso % (Auto) (0-2) % Neut # (Auto) (1540-6049) /uL Lymph # (Auto) (8134-6110) /uL [place] # (Auto) (0-900) /uL Eos # (Auto) (0-450) /uL Baso # (Auto) (0-100) /uL PT (10.1-12.7) SECONDS INR (0.9-1.3) APTT (26.4-36.2) SECONDS Sodium 141 (137-145) mmol/L Potassium 4.2 (3.4-5.1) mmol/L Chloride 104 (98-107) mmol/L Carbon Dioxide 29 (22-32) mmol/L BUN 9 (7-17) mg/dL Creatinine 0.60 (0.52-1.04) mg/dL Estimated GFR > 60.0 (>60) mL/min BUN/Creatinine Ratio 15.0 (6-22) Glucose 78 (70-100) mg/dL Calcium 9.8 (8.4-10.2) mg/dL Total Bilirubin 0.4 (0.2-1.3) mg/dL AST 26 (14-36) IU/L ALT 20 (9-52) IU/L Alkaline Phosphatase 74 (38-126) U/L Total Protein 8.0 (6.3-8.2) g/dL Albumin 4.6 (3.5-5.0) g/dL Globulin 3.4 (1.7-4.1) g/dL Albumin/Globulin Ratio 1.4 (1.0-2.8) Lipase 112 (23-300) U/L Urine RBC (0-5/HPF) Urine WBC (0-5/HPF) Ur Squamous Epith Cells (0-5/HPF) Urine Bacteria (None) Ur Culture Indicated? Point of care testing: Point of Care Testing Test Results Negative Urine Dip Bedside Urine Glucose Negative Bedside Urine Bilirubin - Negative Bedside Urine Ketone - Negative Urine Specific [place] 1.015 Bedside Urine Occult Blood + Bedside Urine pH 6.5 Bedside Urine Protein - Negative Bedside Urine Urobilinogen - Negative Bedside Urine Nitrite - Negative Bedside Urine Leukocytes - Negative Esterase Discharge Plan Departure Patient Disposition: Home Clinical Impression: Choledochal cyst Discharge Date/Time: 12/10/18 20:30 Interventions: ED Discharge Assessment Last Done: 12/10/18 20:29 Instructions: DI for Low Back Pain, DI for Abdominal Pain-Adult Activity Restrictions/Additional Instructions: Thank you for entrusting me with your care today. As discussed, your labs are negative for acute changes in the ultrasound shows that your cyst is the same size. I prescribed you a medication for pain, this is a narcotic please do not drive with this medication. I suggest following up with your primary care provider in the next week or so to discuss further options for pain control and or the possibility of physical therapy or acupuncture. Please return to the emergency department if you develop severe chest pain, uncontrollable vomiting, shortness of breath, or fevers that are uncontrolled with Tylenol or ibuprofen. Prescriptions: New oxycodone-acetaminophen [Percocet] 5-325 mg tablet 1 tab PO Q4-6H PRN (Reason: pain) Qty: 5 RF: 0 No Action medroxyprogesterone [Provera] 10 mg tablet 10 mg PO DAILY Qty: 7 RF: 3 letrozole 2.5 mg tablet 2.5 mg PO DAILY Qty: 5 RF: 3 valacyclovir [Valtrex] 500 mg tablet 500 mg PO .bid Qty: 10 RF: 2 <Nancy Monk DO - Last Filed: 12/11/18 08:43> [facility] ED Attending Angelo Attestation: I was immediately available in the department for consultation. Documentation has been reviewed. I agree with assessment and plan.
[2018-12-10 17:35] LABS: Add Manual Diff / Slide Review NO; Basophils Absolute Auto 100 /uL (0-100); Eosinophils Absolute Auto 100 /uL (0-450); Eosinophils Percent Auto 1.2 % (2-4); Hematocrit 42.8 % (36-46); Hemoglobin 14.5 g/dL (12.0-16.0); Lymphocytes Absolute Auto 2000 /uL (1100-4500); Lymphocytes Percent Auto 28.4 % (25-40); Mean Corpuscular HGB Conc 33.8 % (30-36); Mean Corpuscular Hemoglobin 32.7 PG (26-34); Mean Corpuscular Volume 96.7 fL (80-100); Monocytes Absolute Auto 400 /uL (0-900); Monocytes Percent Auto 5.7 % (3-14); Neutrophils Absolute Auto 4400 /uL (1500-7000); Neutrophils Percent Auto 63.7 % (50-75); Platelet Count 322 X10^3/uL (150-400); Red Blood Cell Count 4.42 X10^6/uL (4.0-5.2); Red Cell Distribution Width 13.1 % (11.6-14.8); White Blood Cell Count 6.9 X10^3/uL (4.5-11.0)
[2018-12-10] MEDS: ONDANSETRON 4 MG/2 ML INJ IV (17:41)
[2018-12-10] MEDS: SODIUM CHLORIDE 0.9% 1,000 ML 1000 ML IV (17:41)
[2018-12-10 17:42] LABS: Prothrombin Time 11.2 SECONDS (10.1-12.7)
[2018-12-10 17:44] LABS: PTT Partial Thromboplastin Tim 31 SECONDS (26.4-36.2)
[2018-12-10 17:48] LABS: Alanine Aminotransferase 20 IU/L (9-52); Albumin 4.6 g/dL (3.5-5.0); Albumin Globulin Ratio 1.4 (1.0-2.8); Alkaline Phosphatase 74 U/L (38-126); Aspartate Aminotransferase 26 IU/L (14-36); Bilirubin Total 0.4 mg/dL (0.2-1.3); Blood Urea Nitrogen 9 mg/dL (7-17); Calcium 9.8 mg/dL (8.4-10.2); Carbon Dioxide 29 mmol/L (22-32); Chloride 104 mmol/L (98-107); Estimated Glomerular Filt Rate > 60.0 mL/min (>60); Globulin 3.4 g/dL (1.7-4.1); Glucose 78 mg/dL (70-100); HEMOLYSIS < 15 (0-50); Lipase 112 U/L (23-300); Potassium 4.2 mmol/L (3.4-5.1); Sodium 141 mmol/L (137-145)
[2018-12-10 18:05] VITALS: BP 101/60; PULSE 60; O2SAT 100
--- NOTE | 2018-12-10 18:17 | DI.US.S_ITS ---
PROCEDURE: US ABDOMEN LIMITED INDICATIONS: INCREASED RUQ PAIN, HX OF CHOLEDOCHAL CYST TECHNIQUE: Real-time scanning was performed of the abdominal and retroperitoneal organs, with image documentation. COMPARISON: [facility], MR, MR ABDOMEN WO CON, 10/03/2018, 16:32. [facility], US, US ABDOMEN COMPLETE, 09/15/2018, 16:48. FINDINGS: Gallbladder and liver: The gallbladder appears normal, free of calculus or wall thickening. The posterior border of the liver parenchyma near the portal vein and common hepatic duct contains a nonspecific ovoid hyperechoic finding measuring 6 x 10 x 14 mm, likely a small hemangioma by appearance. Biliary ducts: Intrahepatic bile ducts are non-dilated. Extrahepatic bile duct caliber measures 9 mm. This area of mild ectasia of the common duct is consistent with a type I choledochocyst. Normal is 6-7 mm or less in diameter, or 10 mm or less post-cholecystectomy. Pancreas: Visualized portions of the pancreas are sonographically normal. Spleen: Spleen is normal in size and homogeneous in echotexture. Miscellaneous: No free abdominal fluid. IMPRESSION: A mild fusiform ectasia of the mid common bile duct is again seen equivalent to that present considering differences in technique on recent prior MR scanning 10/03/18, consistent with a type I choledochocyst. No source of pain is seen, gallbladder appears normal. Incidental note made of a small ovoid hyperechoic area of the liver parenchyma adjacent to the gallbladder fossa region, consistent with small hemangioma or focal fatty infiltration. Dictated by: Leandro Beltran M.D. on 12/10/2018 at 19:44 Approved by: Leandro Beltran M.D. on 12/10/2018 at 19:50
[2018-12-10] MEDS: OXYCODONE/ACETAMINOPHEN 5/325 TABLET 1 TAB PO (18:38)
[2018-12-10 19:02] VITALS: BP 112/66; PULSE 55; RESP 18; O2SAT 96
[2018-12-10] MEDS: OXYCODONE/APAP 5/325 PREPACK 1 BOTTLE MISC (20:22)
[2018-12-10 20:29] VITALS: BP 128/70; PULSE 64; RESP 18; TEMP 36.8; O2SAT 98
== END 2018-12-10 20:30 | disposition home or self-care (01) ==
PROVIDERS: Emergency Medicine; Emergency Provider Nurse Practitioner
DX: Q44.4 Choledochal cyst (principal); R10.9 Unspecified abdominal pain
CPT/HCPCS: 36591; 76705; 80053; 81003; 81015; 81025; 83690; 85025; 85610; 85730; 93005; 96361; 96374; 99283; 99285; J2405

== ENCOUNTER → 2019-09-07 11:30 | Outpatient (CLI) | payer OTHER, MEDICAID, SELFPAY ==
--- NOTE | 2019-09-07 | DI.CT.S_ITS ---
PROCEDURE: CT ABDOMEN PELVIS W CON INDICATIONS: Right upper quadrant pain TECHNIQUE: After the administration of oral and intravenous contrast, 5 mm thick sections acquired from the diaphragms to the symphysis. 5 mm thick coronal and sagittal reformats were performed. For radiation dose reduction, the following was used: automated exposure control, adjustment of mA and/or kV according to patient size. COMPARISON: [facility], US, US ABDOMEN LIMITED, 12/10/2018, 18:50. [facility], , MR ABDOMEN WO CON, 10/03/2018, 16:32. [facility], US, US ABDOMEN COMPLETE, 09/15/2018, 16:48. FINDINGS: Image quality: Excellent. ABDOMEN: Lung bases: Lung bases are clear. Heart size is normal. Solid organs: Liver is normal in size and enhancement. Gallbladder is surgically absent. Mild intrahepatic biliary dilation is present. There is pneumobilia. Surgical clips in the zeynep hepatis. Pancreas enhances normally. Spleen is normal in size and enhancement. No adrenal nodules. Kidneys are normal in size and enhancement, without hydronephrosis. Peritoneum and bowel: Stomach, small bowel, and colon loops are normal in caliber. There is concentric thickening in several jejunum loops in the upper abdomen. No free fluid or air. Nodes and vessels: No retroperitoneal or mesenteric adenopathy. Aorta and inferior vena cava are normal in caliber. Miscellaneous: No ventral hernias. PELVIS: Genitourinary: Bladder wall thickness is normal. Uterus and ovaries are unremarkable. No free pelvic fluid. Miscellaneous: No inguinal hernias or adenopathy. Bones: No suspicious bony lesions. No vertebral body compression fractures. IMPRESSION: 1. No acute intra-abdominal process. 2. Cholecystectomy. There are postsurgical changes in the zeynep hepatis, presumably related to surgical resection of choledochocyst. There is mild intrahepatic biliary dilation and pneumobilia. 3. Concentric thickening in several jejunum loops in the upper abdomen, which may be secondary to segmental enteritis. If clinical symptoms persist, CT enterography may be helpful. Dictated by: Amy Celis M.D. on 09/07/2019 at 16:47 Transcribed by: [email or web address] on 09/07/2019 at 18:05 Approved by: Amy Celis M.D. on 09/07/2019 at 18:06
== END ==
PROVIDERS: PCP Family Medicine; Referring Provider Family Medicine; Visit Provider Family Medicine
DX: R10.11 Right upper quadrant pain (principal); K83.8 Other specified diseases of biliary tract; Z90.49 Acquired absence of other specified parts of digestive tract
CPT/HCPCS: 74177; Q9967

== ENCOUNTER 2020-10-04 18:04 | Emergency (ER) | payer OTHER, MEDICAID, SELFPAY ==
[2020-10-04 18:46] VITALS: BP 107/67; PULSE 66; RESP 17; TEMP 36.6; O2SAT 99
[2020-10-04] MEDS: SODIUM CHLORIDE 0.9% 1,000 ML 1000 ML IV (19:21)
--- NOTE | 2020-10-04 19:28 | ED.ABDPAIN ---
HPI - Abdominal Pain General Chief Complaint: Abdominal Pain Stated Complaint: stomach pain Time Seen by Provider: 10/04/20 18:06 Source: patient Mode of arrival: Ambulatory Limitations: no limitations History of Present Illness HPI narrative: 39-year-old female nonsmoker with a history of prior gallbladder surgery and subsequent complications presents at the request of her primary care provider with a chief complaint of about 5 days of upper abdominal discomfort and some nausea. Additionally, she complains of belching and 1 episode of diarrhea. She states her pain is largely persistent and seems to be worse with eating, drinking and moving. She admits to improvement with rest. She denies any radiation of her discomfort. She states it is sometimes sharp and stabbing at other times achy and moderate in intensity. She has had no fever or chills and denies any significant change in medications or diet MD complaint: abdominal pain Onset (ago): day(s) Pain Consistency: constant Location: epigastric Severity: moderate Quality: cramping and aching Relieving factors: rest Exacerbating factors: movement Associated symptoms: nausea and diarrhea Related Data Previous Rx's Medication Instructions Recorded letrozole 2.5 mg tablet 2.5 mg PO DAILY #5 tab 05/10/18 medroxyprogesterone 10 mg tablet 10 mg PO DAILY #7 tab 05/10/18 valacyclovir 500 mg tablet 500 mg PO .bid #10 tab 10/31/18 oxycodone-acetaminophen [Percocet] 1 tab PO Q4-6H PRN #5 tab 12/10/18 hydrocodone-acetaminophen 1 tab PO Q4-6H PRN #10 tab 10/04/20 ondansetron 4 mg PO TID-QID PRN #10 tab 10/04/20 Allergies Allergy/AdvReac Type Severity Reaction Status Date / Time codeine AdvReac Mild Vomiting Verified 10/04/20 18:48 Review of Systems Constitutional Constitutional: Denies chills, Denies fatigue, Denies fever(s), Denies frequent falls, Denies lethargy and Denies weakness Eyes Eyes: Denies change in vision, Denies eye discharge, Denies irritation and Denies loss of vision ENT Ears, Nose, Mouth, and Throat: Denies change in voice, Denies dizziness, Denies neck pain, Denies sore throat and Denies throat swelling Cardiovascular Cardiovascular: Denies chest pain, Denies irregular heart rhythm, Denies lightheadedness, Denies palpitations, Denies dyspnea, Denies dyspnea on exertion and Denies orthopnea Respiratory Respiratory: Denies cough, Denies dyspnea, Denies dyspnea on exertion and Denies wheezing Gastrointestinal Gastrointestinal: Reports abdominal pain, Denies change in bowel habits, Reports diarrhea, Reports nausea and Denies vomiting Musculoskeletal Musculoskeletal: Denies neck pain and Denies numbness Integumentary/Breasts Skin/Breast: Denies pruritus, Denies erythema, Denies rash and Denies wounds Neurologic Neurologic: Denies behavioral changes, Denies confusion, Denies dizziness, Denies frequent falls, Denies loss of vision, Denies numbness and Denies weakness Psychiatric Psychiatric: Denies anxiety, Denies behavioral changes, Denies confusion, Denies depression, Denies homicidal ideation and Denies suicidal ideation Endocrine Endocrine: Denies fatigue, Denies flushing and Denies palpitations Hematologic/Lymphatic Hematologic/Lymphatic: Denies easy bruising Allergic/Immunologic Allergic/Immunologic: Denies urticaria, Denies throat swelling and Denies wheezing Patient History Medical History (Updated 10/04/20 @ 22:12 by Vamshi Salmeron DO) Healthy female adult Surgical History Right arm fracture S/P D&C (status post dilation and curettage) (~01/26/18) Social History household members: none Smoking Status: Never smoker Smoking Status: Never smoker alcohol intake frequency: other Substance Use Type: marijuana Exam Narrative Exam Narrative: GENERAL: [39] year old patient appears stated age. Well-nourished, well-developed patient, in mild distress. Lying on her side and rubbing her upper abdomen HEAD: Atraumatic. Normocephalic. EYES: Pupils equal round and reactive. Extraocular motions intact. No scleral icterus. No injection or drainage. ENT: Nose without bleeding, purulent drainage. Throat without erythema, tonsillar hypertrophy or exudate. Airway patent. NECK: Trachea midline. Non tender CARDIOVASCULAR: Regular rate and rhythm without murmurs, gallops, or rubs. RESPIRATORY: Clear to auscultation. Breath sounds equal bilaterally. No wheezes, rales, or rhonchi. GASTROINTESTINAL: Abdomen soft, tender in the epigastric, nondistended. EXTREMITIES: No edema or joint tenderness. BACK: Nontender without deformity or crepitance. No flank tenderness. NEURO: AOx3. SKIN: No rash or erythema of visible areas Initial Vital Signs Initial Vital Signs: Vital Signs Temperature 98 F 10/04/20 18:46 Pulse Rate 66 10/04/20 18:46 Respiratory Rate 17 10/04/20 18:46 Blood Pressure 107/67 10/04/20 18:46 Pulse Oximetry 99 10/04/20 18:46 Course Orders Ordered: ED Orders 10/04/20 18:49 EKG-12 Lead Stat 10/04/20 19:20 Complete Blood Count AUTO DIFF Stat Comprehensive Metabolic Panel Stat Lipase Stat Partial Thromboplastin Time Stat Prothrombin Time INR Stat 10/04/20 19:30 CT abdomen pelvis w con Stat Discontinued Medications Hydrocodone Bitart/Acetaminophen (Hydrocodone/Acet 5/325 Prepack) 1 bottle MISC SEEINSTR ONE Stop: 10/04/20 22:08 Last Admin: 10/04/20 22:17 Dose: 1 bottle Documented by: URBAN Hydromorphone HCl (Hydromorphone 0.5 Mg Inj) 0.5 mg IV NOW ONE Stop: 10/04/20 20:14 Last Admin: 10/04/20 20:35 Dose: 0.5 mg Documented by: URBAN Sodium Chloride (Normal Saline 0.9%) 1,000 mls @ 1,000 mls/hr IV BOLUS ONE Stop: 10/04/20 20:14 Last Infusion: 10/04/20 20:31 Dose: 0 mls/hr Documented by: Admin: 10/04/20 19:21 Dose: 1,000 mls/hr Documented by: DIA Sodium Chloride (Normal Saline 0.9%) 500 mls @ 1,000 mls/hr IV BOLUS ONE Stop: 10/04/20 20:42 Last Infusion: 10/04/20 22:24 Dose: 0 mls/hr Documented by: Admin: 10/04/20 20:36 Dose: 1,000 mls/hr Documented by: URBAN Ondansetron HCl (Ondansetron 4 Mg/2 Ml Inj) 4 mg IV Q4HR PRN PRN Reason: Nausea And Vomiting Last Admin: 10/04/20 20:36 Dose: 4 mg Documented by: URBAN Ondansetron HCl (Ondansetron 4 Mg Odt Prepack) 1 bottle MISC SEEINSTR ONE Stop: 10/04/20 22:08 Last Admin: 10/04/20 22:17 Dose: 1 bottle Documented by: URBAN Vital Signs Vital signs: Vital Signs - 8 hr 10/04/20 22:21 Pulse Rate 66 Respiratory Rate 16 Blood Pressure 121/73 Pulse Oximetry 98 MDM - Abdominal Pain Lab Data Result diagrams: 10/04/20 19:20 10/04/20 19:20 Labs: Lab Results 10/04/20 10/04/20 10/04/20 Range/Units 19:20 19:20 19:20 WBC 7.9 (4.5-11.0) X10^3/uL RBC 4.43 (4.0-5.2) X10^6/uL Hgb 14.4 (12.0-16.0) g/dL Hct 42.3 (36-46) % MCV 95.5 (80-100) fL MCH 32.5 (26-34) PG MCHC 34.0 (30-36) % RDW 13.1 (11.6-14.8) % Plt Count 266 (150-400) X10^3/uL Neut % (Auto) 49.4 L (50-75) % Lymph % (Auto) 25.9 (25-40) % [place] % (Auto) 6.5 (3-14) % Eos % (Auto) 16.8 H (2-4) % Baso % (Auto) 1.4 (0-2) % Neut # (Auto) 3900 (6765-2735) /uL Lymph # (Auto) 2000 (8725-9553) /uL [place] # (Auto) 500 (0-900) /uL Eos # (Auto) 1300 H (0-450) /uL Baso # (Auto) 100 (0-100) /uL PT 11.2 (10.1-12.7) SECONDS INR 1.0 (0.9-1.3) APTT 31 (26.4-36.2) SECONDS Sodium 138 (137-145) mmol/L Potassium 4.4 (3.4-5.1) mmol/L Chloride 101 (98-107) mmol/L Carbon Dioxide 29 (22-32) mmol/L BUN 13 (7-17) mg/dL Creatinine 0.62 (0.52-1.04) mg/dL Estimated GFR > 60.0 (>60) mL/min BUN/Creatinine Ratio 21.0 (6-22) Glucose 86 (70-100) mg/dL Calcium 9.5 (8.4-10.2) mg/dL Total Bilirubin 0.3 (0.2-1.3) mg/dL AST 31 (14-36) IU/L ALT 24 (<35) IU/L Alkaline Phosphatase 71 (38-126) U/L Total Protein 7.9 (6.3-8.2) g/dL Albumin 4.5 (3.5-5.0) g/dL Globulin 3.4 (1.7-4.1) g/dL Albumin/Globulin Ratio 1.3 (1.0-2.8) Lipase 168 (23-300) U/L Point of care testing: Point of Care Testing Test Results Negative Urine Dip Bedside Urine Glucose Negative Bedside Urine Bilirubin - Negative Bedside Urine Ketone - Negative Urine Specific [place] 1.020 Bedside Urine Occult Blood - Negative Bedside Urine pH 8.0 Bedside Urine Protein - Negative Bedside Urine Urobilinogen - Negative Bedside Urine Nitrite - Negative Bedside Urine Leukocytes - Negative Esterase Imaging Data CT scan - abdomen/pelvis: Radiologist's Impression: Verna Hernandez Wendy 39 F [address] [id number] Scan ReportSigned Patient: Verna Hernandez R#: [id number]: 1980Acct:[id number]/Sex: 39 / FDate of Service: 10/04/20Loc: EDAccession Number: [id number] Procedure: CT abdomen pelvis w con Ordering Provider: Vamshi Salmeron D.O. PROCEDURE: CT ABDOMEN PELVIS W CON INDICATIONS: severe pain, sent by PCP to evaluate epigastric and RUQ pain TECHNIQUE: After the administration of intravenous contrast, 5 mm thick sections acquired from the diaphragm to the symphysis. 5 mm coronal and sagittal reformats were acquired. For radiation dose reduction, the following was used: automated exposure control, adjustment of mA and/or kV according to patient size. COMPARISON: [facility], CT, CT ABDOMEN PELVIS W CON, 09/07/2019, 12:52. FINDINGS: ABDOMEN: Lung bases: Scattered subsegmental atelectasis and/or scarring. No focal consolidation. Liver: Normal Gallbladder: Surgically absent Bile ducts: Normal Pancreas: Normal. Spleen: Normal. Adrenal glands: Normal Kidneys: Normal Stomach: Normal Bowel: Bowel surgical anastomosis. No evidence of bowel obstruction. Large amount of fluid present within the duodenum and stomach. Other: No free fluid or air. Normal appendix. Abdominal nodes: Normal Aorta and IVC: Normal in size. Ventral wall: Normal PELVIS: Bladder: Normal. Heterogeneous enhancement of uterine fundus possibly related to fibroids although this could be confirmed with ultrasound as necessary. Inguinal: No hernia. Pelvic nodes: Normal Bones: No suspicious bony lesions. No vertebral body compression fractures. IMPRESSION: No evidence of bowel obstruction. Normal appendix No specific visualized etiology for epigastric and right upper quadrant pain. Large amount of fluid seen within the duodenum and stomach raising the possibility of gastroenteritis although technically nonspecific. Additional chronic and incidental findings as above. Dictated by: Gonsalo Ordoñez M.D. on 10/04/2020 at 21:23 Approved by: Gonsalo Ordoñez M.D. on 10/04/2020 at 21:28 [facility] Narrative Medical decision making narrative: Multiple etiologies for patient's symptoms considered including: [Bowel obstruction versus biliary stricture versus abscess versus enteritis versus reflux versus other] Patient's symptoms improved over duration of stay with above-stated therapies. Oral hydration and pain control. She shows no signs of sepsis She is tolerating Findings and discharge diagnosis discussed with patient/family followed by verbalization of understanding Return precautions discussed with patient/family whom verbalize understanding. Discharge Plan Departure Patient Disposition: Home Clinical Impression: Epigastric abdominal pain Instructions: DI for Epigastric Pain Activity Restrictions/Additional Instructions: *You have been diagnosed with [epigastric pain with very reassuring physical exam lab work and CT which shows no significant findings] *What to do: *Take medications as directed: Prescription sent to [facility] electronically * please consider clear liquid diet for the next 24-48 hours and then advance to a bananas, rice, apples and toast diet for the next few days and advance as tolerated *Follow up with your primary care provider in 2-3 days, call for an appointment. Let them know you were seen in the Emergency Department and that we ask that you be seen in follow up *Return to ER if you should have any new, worsening or concerning symptoms Prescriptions: New hydrocodone-acetaminophen 5-325 mg tablet 1 tab PO Q4-6H PRN (Reason: pain) Qty: 10 RF: 0 ondansetron 4 mg tablet,disintegrating 4 mg PO TID-QID PRN (Reason: nausea and vomiting) Qty: 10 RF: 0 No Action medroxyprogesterone [Provera] 10 mg tablet 10 mg PO DAILY Qty: 7 RF: 3 letrozole 2.5 mg tablet 2.5 mg PO DAILY Qty: 5 RF: 3 valacyclovir [Valtrex] 500 mg tablet 500 mg PO .bid Qty: 10 RF: 2 oxycodone-acetaminophen [Percocet] 5-325 mg tablet 1 tab PO Q4-6H PRN (Reason: pain) Qty: 5 RF: 0 Referrals: Raji Coleman MD [Primary Care Provider] -
[2020-10-04 19:32] LABS: Add Manual Diff / Slide Review NO; Basophils Absolute Auto 100 /uL (0-100); Basophils Percent Auto 1.4 % (0-2); Eosinophils Absolute Auto 1300 /uL (0-450); Eosinophils Percent Auto 16.8 % (2-4); Hematocrit 42.3 % (36-46); Hemoglobin 14.4 g/dL (12.0-16.0); Lymphocytes Absolute Auto 2000 /uL (1100-4500); Lymphocytes Percent Auto 25.9 % (25-40); Mean Corpuscular Hemoglobin 32.5 PG (26-34); Mean Corpuscular Volume 95.5 fL (80-100); Monocytes Absolute Auto 500 /uL (0-900); Monocytes Percent Auto 6.5 % (3-14); Neutrophils Absolute Auto 3900 /uL (1500-7000); Neutrophils Percent Auto 49.4 % (50-75); Platelet Count 266 X10^3/uL (150-400); Red Blood Cell Count 4.43 X10^6/uL (4.0-5.2); Red Cell Distribution Width 13.1 % (11.6-14.8); White Blood Cell Count 7.9 X10^3/uL (4.5-11.0)
[2020-10-04 19:41] LABS: Prothrombin Time 11.2 SECONDS (10.1-12.7)
[2020-10-04 19:44] LABS: PTT Partial Thromboplastin Tim 31 SECONDS (26.4-36.2)
[2020-10-04] MEDS: HYDROMORPHONE 0.5 MG INJ IV (20:35)
[2020-10-04] MEDS: ONDANSETRON 4 MG/2 ML INJ IV (20:36)
[2020-10-04] MEDS: SODIUM CHLORIDE 0.9% 500 ML 1000 ML IV (20:36)
[2020-10-04 20:57] LABS: Alanine Aminotransferase 24 IU/L (<35); Albumin 4.5 g/dL (3.5-5.0); Albumin Globulin Ratio 1.3 (1.0-2.8); Alkaline Phosphatase 71 U/L (38-126); Aspartate Aminotransferase 31 IU/L (14-36); Bilirubin Total 0.3 mg/dL (0.2-1.3); Blood Urea Nitrogen 13 mg/dL (7-17); Calcium 9.5 mg/dL (8.4-10.2); Carbon Dioxide 29 mmol/L (22-32); Chloride 101 mmol/L (98-107); Estimated Glomerular Filt Rate > 60.0 mL/min (>60); Globulin 3.4 g/dL (1.7-4.1); Glucose 86 mg/dL (70-100); HEMOLYSIS 31 (0-50); Lipase 168 U/L (23-300); Potassium 4.4 mmol/L (3.4-5.1); Sodium 138 mmol/L (137-145); Total Protein 7.9 g/dL (6.3-8.2)
[2020-10-04] MEDS: ONDANSETRON 4 MG ODT PREPACK 1 BOTTLE MISC (22:17)
[2020-10-04] MEDS: HYDROCODONE/ACET 5/325 PREPACK 1 BOTTLE MISC (22:17)
[2020-10-04 22:21] VITALS: BP 121/73; PULSE 66; RESP 16; O2SAT 98
== END 2020-10-04 22:24 | disposition home or self-care (01) ==
PROVIDERS: Emergency Provider Emergency Medicine; PCP Family Medicine
DX: R10.13 Epigastric pain (principal); R11.0 Nausea
CPT/HCPCS: 36415; 74177; 80053; 81003; 81025; 83690; 85025; 85610; 85730; 93005; 93010; 96361; 96374; 96375; 99284; J1170; J2405

== ENCOUNTER 2022-01-07 11:18 | Emergency (ER) | payer OTHER, MEDICAID, SELFPAY ==
[2022-01-07 11:28] VITALS: BP 109/62; PULSE 63; RESP 15; TEMP 36.2; O2SAT 99; BMI 27.4
[2022-01-07 14:31] VITALS: PULSE 64; O2SAT 99
[2022-01-07 14:33] VITALS: BP 118/58; PULSE 61; O2SAT 100
[2022-01-07 14:41] LABS: Appearance Urine UA CLEAR; Bilirubin Urine UA NEGATIVE (NEGATIVE); Color Urine UA YELLOW; Glucose Urine UA NEGATIVE (Negative); Ketones Urine UA NEGATIVE (NEGATIVE); Leukocyte Esterase Urine UA NEGATIVE (NEGATIVE); Nitrite Urine UA NEGATIVE (Negative); Occult Blood Urine UA NEGATIVE (Negative); Protein Urine UA NEGATIVE (Negative); Specific Gravity Urine UA <=1.005 (1.000-1.035); Urobilinogen Urine UA 0.2 E.U./dL (0.2)
[2022-01-07 14:43] LABS: pH Urine UA 6.5 (4.5-8.0)
--- NOTE | 2022-01-07 14:54 | PC.NURSE ---
Pt reports constant, worsening, right flank pain, nausea, and headache that began on Wednesday (01/04/22). Pt denies pain with urination, burning or frequency.
[2022-01-07 14:58] LABS: Bacteria Urine None Seen; RBC Urine None Seen (0-5/HPF); WBC Urine None Seen (0-5/HPF)
[2022-01-07 14:59] LABS: Culture Indicated Urine Cult Not Indicated
--- NOTE | 2022-01-07 15:33 | ED_ITS ---
HPI - Abdominal Pain <Brenda Stapleton PA-C - Last Filed: 01/07/22 20:53> General Chief Complaint: Urogenital-Female Stated Complaint: Right side back/side pain- thinks kidney Time Seen by Provider: 01/07/22 14:26 Source: patient Mode of arrival: Ambulatory History of Present Illness HPI narrative: 41-year-old previously healthy female presents with concern for right flank pain, some nausea, chills, reduced appetite for the past 3 days. She states that she woke up in the middle the night Wednesday and felt she is having pain in her right flank in the area of her kidney. Since then the pain has progressively worsened, she says it feels like a pressure and someone is pushing her fist into her back, it does not radiate. She has had less appetite and does not feel that the pain is associated with eating, she has been less active the last few days due to her discomfort. She denies any urinary symptoms, diarrhea or constipation. She has a history of a Marko-en-Y, she states she has never felt pain like this before. She states that is an 8/10 pain that is achy and sharp in hard to describe. It is constant, does not radiate, is not affected by movement. She denies any recent activity or new medication changes that could have brought this on. She denies chest pain, upper back pain, shortness of breath, dizziness, lightheadedness or other symptoms. She does state that she had COVID a few weeks ago. She said her symptoms were mild. Related Data Previous Rx's Medication Instructions Recorded letrozole 2.5 mg tablet 2.5 mg PO DAILY #5 tabs 05/10/18 medroxyprogesterone 10 mg tablet 10 mg PO DAILY #7 tabs 05/10/18 (Provera) valacyclovir 500 mg tablet 500 mg PO .bid #10 tabs 10/31/18 (Valtrex) oxycodone-acetaminophen 5 mg-325 1 tab PO Q4-6H PRN pain #5 tabs 12/10/18 mg tablet (Percocet) hydrocodone 5 mg-acetaminophen 325 1 tab PO Q4-6H PRN pain #10 tabs 10/04/20 mg tablet ondansetron 4 mg disintegrating 4 mg PO TID-QID PRN nausea and 10/04/20 tablet vomiting #10 tabs lidocaine 5 % topical patch 1 patch topical DAILY #15 ea 01/07/22 ondansetron 4 mg disintegrating 4 mg PO Q8H PRN nausea and 01/07/22 tablet vomiting #20 tabs Allergies Allergy/AdvReac Type Severity Reaction Status Date / Time codeine AdvReac Mild Vomiting Verified 01/07/22 11:39 Review of Systems <Brenda Stapleton PA-C - Last Filed: 01/07/22 20:53> Review of Systems Narrative: Unremarkable except as noted in the HPI Patient History <Brenda Stapleton PA-C - Last Filed: 01/07/22 20:53> Medical History (Updated 01/07/22 @ 17:27 by Brenda Stapleton PA-C) Healthy female adult Surgical History Right arm fracture S/P D&C (status post dilation and curettage) (~01/26/18) Social History household members: none Smoking Status: Never smoker Smoking Status: Never smoker alcohol intake frequency: other Substance Use Type: marijuana Exam <Brenda Stapleton PA-C - Last Filed: 01/07/22 20:53> Narrative Exam Narrative: GENERAL: 41 year old patient appears stated age. Well-developed patient, in mild distress. HEAD: Atraumatic. Normocephalic. EYES: Pupils equal round and reactive. Extraocular motions intact. No scleral icterus. No injection or drainage. ENT: Nose without bleeding, purulent drainage. Airway patent. NECK: Trachea midline. Non tender CARDIOVASCULAR: Regular rate and rhythm without murmurs, gallops, or rubs. RESPIRATORY: Clear to auscultation. Breath sounds equal bilaterally. No wheezes, rales, or rhonchi. GASTROINTESTINAL: There is moderate right upper quadrant tenderness. Castillo sign is negative. No McBurney's point tenderness, negative psoas, negative obturator's. No suprapubic tenderness, there is flank tenderness with increased pain with palpation at the costal border posteriorly on the right side just lateral to the spine. It is not worsened by percussion. There is no left flank tenderness or CVA tenderness. Abdomen soft, non-tender, nondistended. EXTREMITIES: No edema or joint tenderness. BACK: See GI. Nontender without deformity or crepitance. No other flank t enderness. NEURO: AOx3. SKIN: No rash or erythema of visible areas Initial Vital Signs Initial Vital Signs: Vital Signs Temperature 97.1 F L 01/07/22 11:28 Pulse Rate 63 01/07/22 11:28 Respiratory Rate 15 01/07/22 11:28 Blood Pressure 109/62 01/07/22 11:28 Pulse Oximetry 99 01/07/22 11:28 Oxygen Delivery Method 01/07/22 11:28 <Nancy Monk DO - Last Filed: 01/11/22 13:41> Initial Vital Signs Initial Vital Signs: Vital Signs Temperature 97.1 F L 01/07/22 11:28 Pulse Rate 63 01/07/22 11:28 Respiratory Rate 15 01/07/22 11:28 Blood Pressure 109/62 01/07/22 11:28 Pulse Oximetry 99 01/07/22 11:28 Oxygen Delivery Method 01/07/22 11:28 Course <Brenda Stapleton PA-C - Last Filed: 01/07/22 20:53> Orders Ordered: Discontinued Medications Ketorolac Tromethamine (Ketorolac 30 Mg/Ml Vial) 30 mg IV NOW ONE Stop: 01/07/22 15:34 Last Admin: 01/07/22 15:42 Dose: 30 mg Documented By: LA NENA Ondansetron HCl (Ondansetron 4 Mg/2 Ml Inj) 4 mg IV NOW ONE Stop: 01/07/22 15:34 Last Admin: 01/07/22 15:42 Dose: 4 mg Documented By: LA NENA Vital Signs Vital signs: Vital Signs - 8 hr 01/07/22 14:31 01/07/22 14:33 01/07/22 14:33 Pulse Rate 64 61 Respiratory Rate Blood Pressure 118/58 L Pulse Oximetry 99 100 Oxygen Delivery Method 01/07/22 16:13 01/07/22 16:15 01/07/22 16:15 Pulse Rate 64 59 L Respiratory Rate 17 Blood Pressure 96/60 Pulse Oximetry 97 Oxygen Delivery Method 01/07/22 17:55 Pulse Rate 61 Respiratory Rate Blood Pressure 103/61 Pulse Oximetry 98 Oxygen Delivery Method Room Air <Nancy Monk DO - Last Filed: 01/11/22 13:41> Orders Ordered: Discontinued Medications Ketorolac Tromethamine (Ketorolac 30 Mg/Ml Vial) 30 mg IV NOW ONE Stop: 01/07/22 15:34 Last Admin: 01/07/22 15:42 Dose: 30 mg Documented By: LA NENA Ondansetron HCl (Ondansetron 4 Mg/2 Ml Inj) 4 mg IV NOW ONE Stop: 01/07/22 15:34 Last Admin: 01/07/22 15:42 Dose: 4 mg Documented By: LA NENA Vital Signs Vital signs: Vital Signs - 8 hr 01/07/22 14:31 01/07/22 14:33 01/07/22 14:33 Pulse Rate 64 61 Respiratory Rate Blood Pressure 118/58 L Pulse Oximetry 99 100 Oxygen Delivery Method 01/07/22 16:13 01/07/22 16:15 01/07/22 16:15 Pulse Rate 64 59 L Respiratory Rate 17 Blood Pressure 96/60 Pulse Oximetry 97 Oxygen Delivery Method 01/07/22 17:55 Pulse Rate 61 Respiratory Rate Blood Pressure 103/61 Pulse Oximetry 98 Oxygen Delivery Method Room Air MDM - Abdominal Pain <Brenda Stapleton PA-C - Last Filed: 01/07/22 20:53> Lab Data Result diagrams: 01/07/22 15:45 01/07/22 15:45 Labs: Lab Results 01/07/22 01/07/22 01/07/22 Range/Units 14:33 15:45 15:45 WBC 5.2 (4.5-11.0) X10^3/uL RBC 4.66 (4.0-5.2) X10^6/uL Hgb 14.8 (12.0-16.0) g/dL Hct 43.2 (36-46) % MCV 92.8 (80-100) fL MCH 31.7 (26-34) PG MCHC 34.1 (30-36) % RDW 12.8 (11.6-14.8) % Plt Count 215 (150-400) X10^3/uL Neut % (Auto) 54.3 (50-75) % Lymph % (Auto) 37.3 (25-40) % [place] % (Auto) 6.8 (3-14) % Eos % (Auto) 1.0 L (2-4) % Baso % (Auto) 0.6 (0-2) % Neut # (Auto) 2800 (7653-8163) /uL Lymph # (Auto) 1900 (8344-3848) /uL [place] # (Auto) 400 (0-900) /uL Eos # (Auto) 100 (0-450) /uL Baso # (Auto) 0 (0-100) /uL Sodium 138 (137-145) mmol/L Potassium 3.8 (3.4-5.1) mmol/L Chloride 103 (98-107) mmol/L Carbon Dioxide 25 (22-32) mmol/L BUN 7 (7-17) mg/dL Creatinine 0.57 (0.52-1.04) mg/dL Estimated GFR > 60 (>60) mL/min BUN/Creatinine Ratio 12.3 (6-22) Glucose 90 (70-100) mg/dL Calcium 9.1 (8.4-10.2) mg/dL Total Bilirubin 0.6 (0.2-1.3) mg/dL AST 27 (14-36) IU/L ALT 22 (<35) IU/L Alkaline Phosphatase 73 (38-126) U/L Total Protein 8.2 (6.3-8.2) g/dL Albumin 5.0 (3.5-5.0) g/dL Globulin 3.2 (1.7-4.1) g/dL Albumin/Globulin Ratio 1.6 (1.0-2.8) Lipase 251 (23-300) U/L Urine Color Yellow Urine Appearance Clear Urine pH 6.5 (4.5-8.0) Ur Specific [place] <=1.005 (1.000-1.035) Urine Protein Negative (Negative) Urine Glucose (UA) Negative (Negative) g/dL Urine Ketones Negative (NEGATIVE) Urine Occult Blood Negative (Negative) Urine Nitrate Negative (Negative) Urine Bilirubin Negative (NEGATIVE) Urine Urobilinogen 0.2 (0.2) E.U./dL Ur Leukocyte Esterase Negative (NEGATIVE) Urine RBC None seen (0-5/HPF) Urine WBC None seen (0-5/HPF) Urine Bacteria None seen (None) Ur Culture Indicated? Cult not indicated Point of care testing: Point of Care Testing Test Results Negative Urine Dip Bedside Urine Glucose Negative Bedside Urine Bilirubin - Negative Bedside Urine Ketone - Negative Urine Specific [place] 1.010 Bedside Urine Occult Blood - Negative Bedside Urine pH 6.0 Bedside Urine Protein - Negative Bedside Urine Urobilinogen - Negative Bedside Urine Nitrite - Negative Bedside Urine Leukocytes - Negative Esterase Imaging Data CT scan - abdomen/pelvis: My Impression: I reviewed the imaging and agree with radiologist's interpretation Radiologist's Impression: [address] [address] [address] Scan Report Signed Patient: Verna Hernandez MR#: [id number] : 1980 Acct:[id number] Age/Sex: 41 / F Date of Service: 01/07/22 Loc: ED Accession Number: [id number] ?? Procedure: CT kidney ureter bladder (KUB) Ordering Provider: Brenda Stapleton P.A-C PROCEDURE:? CT KIDNEY URETER BLADDER (KUB) ? INDICATIONS:? R flank and RUQ pain, worsening x3 days, cholecystectomy ? TECHNIQUE:? Axial sections were acquired from the lung bases to the pubic symphysis.? Coronal and sagittal reformats were performed.? For radiation dose reduction, the following was used: ?automated exposure control, adjustment of mA and/or kV according to patient size.? ? COMPARISON:? [facility], CT, CT ABDOMEN PELVIS W CON, 09/07/2019, 12:52.? [facility], CT, CT ABDOMEN PELVIS W CON, 10/04/2020, 21:02. ? FINDINGS:? Image quality:? Excellent.? ? Lung bases:? Unremarkable.? ? Heart:? No significant findings. ? URINARY: Right Kidney: ? No stones or hydronephrosis.? Right Ureter:? No hydroureter.? ? Left Kidney: ? No stones or hydronephrosis. Left Ureter:? No hydroureter.? ? Bladder:? Normal wall thickness. No stones. ? ? ? ABDOMEN: Liver:? Unremarkable.? ? Gallbladder:? Absent? ? Biliary ducts:? Unremarkable.? ? Pancreas:? Unremarkable.? ? Spleen:? Unremarkable.? ? Adrenal Glands:? Unremarkable.? ? ? Stomach and Bowel:? Stomach, small bowel loops, and colon are nonobstructive.? Surgical colonic anastomotic sutures are noted.? Scattered moderate colonic stool.? No obstruction. Peritoneum:? No abnormal intraperitoneal fluid.? No free air.? ? Ventral Wall: ? No hernia.? Abdominal Nodes:? No enlarged retroperitoneal or mesenteric lymph nodes.? Vessels:? Aorta and inferior vena cava are normal in size.? ? PELVIS: Pelvic Organs:? Lobulated uterus possibly related to fibroids. Pelvic Nodes: Unremarkable. Miscellaneous: No inguinal hernias are seen. ? ? ? Bones:? Unremarkable. ? IMPRESSION:? ? No visualized cause of right lower quadrant pain. ? Constipation without obstruction. ? ? ? Dictated by: Alysia Arzate M.D. on 01/07/2022 at 16:18 ? ? Approved by: Alysia Arzate M.D. on 01/07/2022 at 16:21?? MDM Narrative Medical decision making narrative: Well-appearing 41-year-old woman history of cholecystectomy and Marko-en-Y surgery presents with concern for right flank pain for approximately 3 days that has been gradually worsening. Constant pain unrelieved by rest. She has not tried OTC medications. Exam is remarkable for right flank tenderness worsened with palpation, right upper quadrant mild tenderness, her labs are unremarkable today. CT KUB obtained for further evaluation which is also unremarkable. Clear etiology for this patient's symptoms and pain is unclear, she did recently have COVID however had mild symptoms per patient. Differential diagnosis is broad and includes psoas strain, appendicitis, structural kidney disease, postoperative pain, Covid sequela. I have low suspicion for cardiac or vascular etiology or other intra-abdominal pathology that require further evaluation or workup today in the emergency department. Counseled the patient to follow-up with her PCP in the next 2-5 days provided her pain persists. Counseled her regarding ED return precautions including fevers, chills, nausea, vomiting, loss of appetite, increasing pain change in nature of her pain radiation of her pain. Prescription for lidocaine patches, advised the patient to utilize acetaminophen and ibuprofen, try heat and ice. <Nancy Monk, DO - Last Filed: 01/11/22 13:41> Lab Data Labs: Lab Results 01/07/22 01/07/22 01/07/22 Range/Units 14:33 15:45 15:45 WBC 5.2 (4.5-11.0) X10^3/uL RBC 4.66 (4.0-5.2) X10^6/uL Hgb 14.8 (12.0-16.0) g/dL Hct 43.2 (36-46) % MCV 92.8 (80-100) fL MCH 31.7 (26-34) PG MCHC 34.1 (30-36) % RDW 12.8 (11.6-14.8) % Plt Count 215 (150-400) X10^3/uL Neut % (Auto) 54.3 (50-75) % Lymph % (Auto) 37.3 (25-40) % [place] % (Auto) 6.8 (3-14) % Eos % (Auto) 1.0 L (2-4) % Baso % (Auto) 0.6 (0-2) % Neut # (Auto) 2800 (8473-6409) /uL Lymph # (Auto) 1900 (7618-0503) /uL [place] # (Auto) 400 (0-900) /uL Eos # (Auto) 100 (0-450) /uL Baso # (Auto) 0 (0-100) /uL Sodium 138 (137-145) mmol/L Potassium 3.8 (3.4-5.1) mmol/L Chloride 103 (98-107) mmol/L Carbon Dioxide 25 (22-32) mmol/L BUN 7 (7-17) mg/dL Creatinine 0.57 (0.52-1.04) mg/dL Estimated GFR > 60 (>60) mL/min BUN/Creatinine Ratio 12.3 (6-22) Glucose 90 (70-100) mg/dL Calcium 9.1 (8.4-10.2) mg/dL Total Bilirubin 0.6 (0.2-1.3) mg/dL AST 27 (14-36) IU/L ALT 22 (<35) IU/L Alkaline Phosphatase 73 (38-126) U/L Total Protein 8.2 (6.3-8.2) g/dL Albumin 5.0 (3.5-5.0) g/dL Globulin 3.2 (1.7-4.1) g/dL Albumin/Globulin Ratio 1.6 (1.0-2.8) Lipase 251 (23-300) U/L Urine Color Yellow Urine Appearance Clear Urine pH 6.5 (4.5-8.0) Ur Specific [place] <=1.005 (1.000-1.035) Urine Protein Negative (Negative) Urine Glucose (UA) Negative (Negative) g/dL Urine Ketones Negative (NEGATIVE) Urine Occult Blood Negative (Negative) Urine Nitrate Negative (Negative) Urine Bilirubin Negative (NEGATIVE) Urine Urobilinogen 0.2 (0.2) E.U./dL Ur Leukocyte Esterase Negative (NEGATIVE) Urine RBC None seen (0-5/HPF) Urine WBC None seen (0-5/HPF) Urine Bacteria None seen (None) Ur Culture Indicated? Cult not indicated Point of care testing: Point of Care Testing Test Results Negative Urine Dip Bedside Urine Glucose Negative Bedside Urine Bilirubin - Negative Bedside Urine Ketone - Negative Urine Specific [place] 1.010 Bedside Urine Occult Blood - Negative Bedside Urine pH 6.0 Bedside Urine Protein - Negative Bedside Urine Urobilinogen - Negative Bedside Urine Nitrite - Negative Bedside Urine Leukocytes - Negative Esterase Discharge Plan Departure Patient Disposition: Home Clinical Impression: Acute abdominal pain in right flank Activity Restrictions/Additional Instructions: Thank you for letting us be part of your care today in the emergency department. There is no evidence of an emergent or life threatening illness at this time, but follow up with your doctor in 1-2 days is recommended nonetheless to continue to rule out serious underlying causes of your symptoms. Your labs today were looking very good, we did not have any concerning findings on the labs were checked including a complete blood count, your metabolic panel, urinalysis and a lab which evaluates your pancreas. We also did a CT scan today and this had no findings that would suggest a cause for the discomfort you been having for last few days. There are many potential things that can cause abdominal pain and it is important that you monitor your symptoms over the next few days and beyond and follow-up with your primary care doctor. If you do feel you are worsening or have new or concerning symptoms do not hesitate to be re- evaluated. You have had some mild nausea recently so I have prescribed some nausea medicine for you, you had not tried any [id number] medicines before coming in so I do recommend you try Tylenol and ibuprofen and see if this helps. You may also want to try heat and ice in the area of your pain. I also prescribed some lidocaine patches for you that you can leave on for up to 12 hours a day. I hope you feel better soon. Please call the office for an appointment. Please return to the Emergency Department for any worsening or persistent symptoms. Please take medications as directed. Prescriptions: New lidocaine 5 % adhesive patch,medicated 1 patch topical DAILY Qty: 15 2RF Rx Instructions: leave on most painful area for up to 12 hrs ondansetron 4 mg tablet,disintegrating 4 mg PO Q8H PRN (Reason: nausea and vomiting) Qty: 20 0RF No Action medroxyprogesterone [Provera] 10 mg tablet 10 mg PO DAILY Qty: 7 3RF Rx Instructions: Take one tablet daily by mouth to induce period letrozole 2.5 mg tablet 2.5 mg PO DAILY Qty: 5 3RF Rx Instructions: Take one tablet by mouth day 3-7 of period valacyclovir [Valtrex] 500 mg tablet 500 mg PO .bid Qty: 10 2RF Rx Instructions: Take one tablet by mouth twice daily x5 days for outbreak oxycodone-acetaminophen [Percocet] 5-325 mg tablet 1 tab PO Q4-6H PRN (Reason: pain) Qty: 5 0RF hydrocodone-acetaminophen 5-325 mg tablet 1 tab PO Q4-6H PRN (Reason: pain) Qty: 10 0RF ondansetron 4 mg tablet,disintegrating 4 mg PO TID-QID PRN (Reason: nausea and vomiting) Qty: 10 0RF Referrals: Meghna Castillo ARNP [Primary Care Provider] - Visit Report Forms: Patient Portal/API <Nancy Monk DO - Last Filed: 01/11/22 13:41> Cosign ED Attending Angelo Attestation: I was immediately available in the department for consultation. Documentation has been reviewed. I agree with assessment and plan.
--- NOTE | 2022-01-07 15:41 | DI.CT.S_ITS ---
PROCEDURE: CT KIDNEY URETER BLADDER (KUB) INDICATIONS: R flank and RUQ pain, worsening x3 days, cholecystectomy TECHNIQUE: Axial sections were acquired from the lung bases to the pubic symphysis. Coronal and sagittal reformats were performed. For radiation dose reduction, the following was used: automated exposure control, adjustment of mA and/or kV according to patient size. COMPARISON: [facility], CT, CT ABDOMEN PELVIS W CON, 09/07/2019, 12:52. [facility], CT, CT ABDOMEN PELVIS W CON, 10/04/2020, 21:02. FINDINGS: Image quality: Excellent. Lung bases: Unremarkable. Heart: No significant findings. URINARY: Right Kidney: No stones or hydronephrosis. Right Ureter: No hydroureter. Left Kidney: No stones or hydronephrosis. Left Ureter: No hydroureter. Bladder: Normal wall thickness. No stones. ABDOMEN: Liver: Unremarkable. Gallbladder: Absent Biliary ducts: Unremarkable. Pancreas: Unremarkable. Spleen: Unremarkable. Adrenal Glands: Unremarkable. Stomach and Bowel: Stomach, small bowel loops, and colon are nonobstructive. Surgical colonic anastomotic sutures are noted. Scattered moderate colonic stool. No obstruction. Peritoneum: No abnormal intraperitoneal fluid. No free air. Ventral Wall: No hernia. Abdominal Nodes: No enlarged retroperitoneal or mesenteric lymph nodes. Vessels: Aorta and inferior vena cava are normal in size. PELVIS: Pelvic Organs: Lobulated uterus possibly related to fibroids. Pelvic Nodes: Unremarkable. Miscellaneous: No inguinal hernias are seen. Bones: Unremarkable. IMPRESSION: No visualized cause of right lower quadrant pain. Constipation without obstruction. Dictated by: Alysia Arzate M.D. on 01/07/2022 at 16:18 Approved by: Alysia Arzate M.D. on 01/07/2022 at 16:21
[2022-01-07] MEDS: ONDANSETRON 4 MG/2 ML INJ IV (15:42)
[2022-01-07] MEDS: KETOROLAC 30 MG/ML VIAL IV (15:42)
[2022-01-07 16:04] LABS: Add Manual Diff / Slide Review NO; Basophils Absolute Auto 0 /uL (0-100); Basophils Percent Auto 0.6 % (0-2); Eosinophils Absolute Auto 100 /uL (0-450); Hematocrit 43.2 % (36-46); Hemoglobin 14.8 g/dL (12.0-16.0); Lymphocytes Absolute Auto 1900 /uL (1100-4500); Lymphocytes Percent Auto 37.3 % (25-40); Mean Corpuscular HGB Conc 34.1 % (30-36); Mean Corpuscular Hemoglobin 31.7 PG (26-34); Mean Corpuscular Volume 92.8 fL (80-100); Monocytes Absolute Auto 400 /uL (0-900); Monocytes Percent Auto 6.8 % (3-14); Neutrophils Absolute Auto 2800 /uL (1500-7000); Neutrophils Percent Auto 54.3 % (50-75); Platelet Count 215 X10^3/uL (150-400); Red Blood Cell Count 4.66 X10^6/uL (4.0-5.2); Red Cell Distribution Width 12.8 % (11.6-14.8); White Blood Cell Count 5.2 X10^3/uL (4.5-11.0)
[2022-01-07 16:13] VITALS: PULSE 64
[2022-01-07 16:15] VITALS: BP 96/60; PULSE 59; RESP 17; O2SAT 97
[2022-01-07 16:16] LABS: Alanine Aminotransferase 22 IU/L (<35); Albumin Globulin Ratio 1.6 (1.0-2.8); Alkaline Phosphatase 73 U/L (38-126); Aspartate Aminotransferase 27 IU/L (14-36); BUN Creatinine Ratio 12.3 (6-22); Bilirubin Total 0.6 mg/dL (0.2-1.3); Blood Urea Nitrogen 7 mg/dL (7-17); Calcium 9.1 mg/dL (8.4-10.2); Carbon Dioxide 25 mmol/L (22-32); Chloride 103 mmol/L (98-107); Estimated Glomerular Filt Rate > 60 mL/min (>60); Globulin 3.2 g/dL (1.7-4.1); Glucose 90 mg/dL (70-100); HEMOLYSIS < 15 (0-50); Lipase 251 U/L (23-300); Potassium 3.8 mmol/L (3.4-5.1); Sodium 138 mmol/L (137-145); Total Protein 8.2 g/dL (6.3-8.2)
[2022-01-07 17:55] VITALS: BP 103/61; PULSE 61; O2SAT 98
== END 2022-01-07 17:59 | disposition home or self-care (01) ==
PROVIDERS: Emergency Provider Student in an Organized Health Care Education/Training Program; PCP Nurse Practitioner Family
DX: R10.11 Right upper quadrant pain (principal); Z86.16 Personal history of COVID-19
CPT/HCPCS: 36415; 74176; 80053; 81001; 81003; 81025; 83690; 85025; 96374; 96375; 99284; J1885; J2405

== ENCOUNTER → 2024-06-20 09:48 | Outpatient (CLI) | payer OTHER, SELFPAY ==
--- NOTE | 2024-06-20 09:50 | DI.MG.S_ITS ---
BILATERAL DIGITAL SCREENING MAMMOGRAM 3D/2D WITH CAD: 06/20/2024 CLINICAL: Baseline exam. Routine screening. Family history of breast cancer. No prior exams were available for comparison. There are scattered areas of fibroglandular density (category b / 25%-50% glandular tissue). Current study was also evaluated with a Computer Aided Detection (CAD) system. No significant masses, calcifications, or other findings are seen in either breast. IMPRESSION: NEGATIVE There is no mammographic evidence of malignancy. A 1 year screening mammogram is recommended. Based on the Tyrer Cuzick model (a risk assessment model) the patient's lifetime risk is 14.3% and her 10 year risk is 2.3%. According to the ACR, ACS, and NCCN guidelines, an annual breast MRI exam along with mammogram is recommended if the patient's lifetime risk is 20% or greater. This exam was interpreted at Station ID: [id number]. NOTE: For mammograms, a report in lay terms will be sent to the patient. Approximately 15% of breast malignancies will not be visualized mammographically. In the management of a palpable breast mass, a negative mammogram must not discourage biopsy of a clinically suspicious lesion. Electronically Signed By: Gaurang barber/darvin:06/20/2024 15:52:08 letter sent: Normal Exam ACR BI-RADS Category 1: Negative
== END ==
LOC: MAMMO 09:50
PROVIDERS: PCP Family Medicine; Referring Provider Family Medicine; Visit Provider Family Medicine
DX: Z12.31 Encounter for screening mammogram for malignant neoplasm of breast (principal); Z80.3 Family history of malignant neoplasm of breast
CPT/HCPCS: 77063; 77067